=== PATIENT | male | born 1985 | race Caucasian/White ===

== ENCOUNTER 2024-02-21 15:41 | Inpatient (IN) | payer BC, SELFPAY ==
[2024-02-21] VITALS (10 sets, daily range): BP systolic 120–156; BP diastolic 82–95; PULSE 60–118; RESP 17–28; TEMP 36.9; O2SAT 95–98; BMI 56.9
--- NOTE | 2024-02-21 15:43 | PC.NURSE ---
Direct admit from [facility] in [facility] received pt via [facility]. Pt has Amiodarone drip running at 1 mg started around 1pm in their facility. 150 mg bolus of amio was given as well per report. Pt denies any chest pain,pressure,sob. Afib w/rvr in 110s-120s. call light provided to pt.
--- OUTSIDE RECORDS SUMMARY | 2024-02-21 15:46 | XMS_ITS | Data Portability ---
Author Name Unknown Address [place] [address] [place] [address] Phone [phone] Organization [facility] Address [address] [place] [phone] Assessment No assessment recorded. Plan of Treatment Reminders Order Date Submit Date Provider Last Modified By Organization Details Last Modified Time Details Appointments None recorded. Lab drug screen, urine 2022 023 [facility], [address] [place] [address], [address], 3 11:48:43 drug screen, urine 2022 023 [facility], [address] [place] [address], [address], 3 15:36:21 CBC w/ diff [email or web address] [facility], [address] [place], [address], 3 15:14:55 TSH, serum or plasma 2022 023 [facility], [address] [place], [address], 3 19:29:01 CMP, serum or plasma 2022 023 [facility], [address], [place], [address], 3 19:29:02 lipid panel, serum 2022 023 [facility], [address], [place], [address], 3 19:29:02 HbA1c (hemoglobin A1c), blood 2022 023 [facility], [address], [place], [address], 3 19:29:01 lipid panel, serum 2023 024 [facility], [address], [place], [address], 4 17:40:46 CBC w/ diff 2023 024 [facility], [address], [place], [address], 4 17:40:42 CMP, serum or plasma 2023 024 [facility], [address], [place], [address], 4 17:40:44 TSH, serum or plasma 2023 024 [facility], [address], [place], [address], 4 17:40:43 HbA1c (hemoglobin A1c), blood [email or web address] [facility], [address], [place], [address], 12:45:53 Referral None recorded. Procedures None recorded. Surgeries None recorded. Imaging None recorded. Medication Orders Adipex-P 37.5 mg tablet 2021 022 [email or web address] 5 [facility], [address] [place] [address], [address], 4 11:45:22 Adipex-P 37.5 mg tablet 2021 022 [email or web address] 5 [facility], [address] [place] [address], [address], 4 11:45:22 Adipex-P 37.5 mg tablet 2022 [email or web address] [place] [address] Pharmacy [facility], [address] [place] [address], [address], 4 11:45:22 losartan 50 mg tablet 2022 023 [email or web address] 5 [facility], [address] [place] [address], [address], 4 11:45:15 Effexor XR 75 mg capsule,ext ended release 2022 [email or web address] [place] [address] Pharmacy 87, [address] [place] [address], [address], 4 11:45:29 phentermine 37.5 mg tablet 2022 023 [email or web address] 5 [facility], [address] [place] [address], [address], 4 11:45:22 Wegovy 0.5 mg/0.5 mL subcutaneou s pen injector 2023 024 [email or web address] [facility], [address] [place] [address], [address], 4 12:45:53 Wegovy 0.25 mg/0.5 mL subcutaneou s pen injector [address] [facility], [address] [address], [place], [address], 4 12:45:53 losartan 50 mg tablet [address] [facility], [address] [facility] [address], [place], [address], 4 12:45:53 sertraline 50 mg tablet [address] [facility], [address], [address], 12:45:53 Patient TargetsNo targets recorded. Patient Instructions Encounter Date Encounter Id Patient Instructions Last Modified By Organization Details Last Modified Time 12/04/2021 [id number] heart-healthy diet: care instructions [email or web address] Not available 12/04/2021 11:25:46 walking for exercise: care instructions [email or web address] Not available 12/04/2021 11:25:46 01/08/2022 [id number] heart-healthy diet: care instructions Not available 01/08/2022 12:43:20 walking for exercise: care instructions [email or web address] Not available 01/08/2022 12:43:20 05/31/2022 [id number] heart-healthy diet: care instructions Not available 05/31/2022 12:27:34 walking for exercise: care instructions Not available 05/31/2022 12:27:34 Reason for Referral None Reported. Results Created Date Observation Date Name Description Value Unit Range Abnormal Flag Note LastModifiedBy Organization Detail LastModifiedTime 11/06/19 22 11/05/2021 CBC WBC 9.4 x10(3 )/uL 2.6 - 8.[address] [facility] [address] [place], [address], 11/05/2021 18:17:42 11/06/19 22 11/05/2021 CBC RBC 5.65 x10(6 )/uL 3.60 - 5.[address] [facility] [address] [place], [address], 11/05/2021 18:17:42 11/06/19 22 11/05/2021 CBC HGB 14.5 g/dL 11.3 - 15.[address] [facility] [address] [place], [address], 11/05/2021 18:17:42 11/06/19 22 11/05/2021 CBC HCT 43.4 % 32.6 - 47.[address] [facility] [address] [place], [address], 11/05/2021 18:17:42 11/06/19 22 11/05/2021 CBC MCV 76.8 fL 80.3 - 103.[address] [facility] [address] [place], [address], 11/05/2021 18:17:42 11/06/19 22 11/05/2021 CBC MCH 25.7 pg 26.0 - 34.[address] [facility] [address] [place], [address], 11/05/2021 18:17:42 11/06/19 22 11/05/2021 CBC MCHC 33.4 g/dL 31.8 - 36.[address] [facility] [address] [place], [address], 11/05/2021 18:17:42 11/06/19 22 11/05/2021 CBC platelet count 320 % 134 - [address] [facility] [address] [place], [address], 11/05/2021 18:17:42 11/06/19 22 11/05/2021 CBC neut% 74.4 % 38.3 - 69.[address] [facility] [address] [place], [address], 11/05/2021 18:17:42 11/06/19 22 11/05/2021 CBC lymph% 20.4 % 17.5 - 47.[address] [facility] [address] [place], [address], 11/05/2021 18:17:42 11/06/19 22 11/05/2021 CBC mxd% 5.2 % 1.9 - 24.[address] [facility] [address] [place], [address], 11/05/2021 18:17:42 11/06/19 22 11/05/2021 CBC neut# 7.0 x10(3 )/uL 1.2 - 5.[address] [facility] [address] [place], [address], 11/05/2021 18:17:42 11/06/19 22 11/05/2021 CBC lymph# 1.9 x10(3 )/uL 0.8 - 2.[address] [facility] [address], [place], [place], [address], 11/05/2021 18:17:42 11/06/19 22 11/05/2021 CBC mxd# 0.5 x10(3 )/uL 0.1 - 1.5 Not Available [facility] [address] [place], [place], [address], 11/05/2021 18:17:42 11/06/19 22 11/05/2021 CBC RDW-SD 40.5 fL 33.4 - 49.[address] [facility] [address] [place], [address], 11/05/2021 18:17:42 11/06/19 22 11/05/2021 CBC RDW-CV 13.8 % 10.8 - 14.[address] [facility] [address] [place], [address], 11/05/2021 18:17:42 11/06/19 22 11/05/2021 CBC MPV 9.3 fL 8.1 - 12.[address] [facility] [address] [place], [address], 11/05/2021 18:17:42 11/06/19 22 11/05/2021 COMPR EHENS LAURE METAB OLIC PANEL (CMP) sodium 143.2 mmol/ L 137.0 - 145.[address] [facility] [address] [place], [address], 11/05/2021 18:17:42 11/06/19 22 11/05/2021 COMPR EHENS LAURE METAB OLIC PANEL (CMP) potassium 4.01 mmol/ L 3.50 - 5.[address] [facility] [address] [place], [address], 11/05/2021 18:17:42 11/06/19 22 11/05/2021 COMPR EHENS LAURE METAB OLIC PANEL (CMP) chloride 106 mmol/ L 98 - [address] [facility] [address] [place], [address], 11/05/2021 18:17:42 11/06/19 22 11/05/2021 COMPR EHENS LAURE METAB OLIC PANEL (CMP) eco2 27 mmol/ L 22 - [address] [facility] [address] [place], [address], 11/05/2021 18:17:42 11/06/19 22 11/05/2021 COMPR EHENS LAURE METAB OLIC PANEL (CMP) BUN/urea 16 mg/dL 9 - [address] [facility] [address] [place], [address], 11/05/2021 18:17:42 11/06/19 22 11/05/2021 COMPR EHENS LAURE METAB OLIC PANEL (CMP) creatinine 0.92 mg/dL 0.66 - 1.[address] [facility] [address] [place], [address], 11/05/2021 18:17:42 11/06/19 22 11/05/2021 COMPR EHENS LAURE METAB OLIC PANEL (CMP) glucose 97 mg/dL 74 - [address] [facility] [address] [place], [address], 11/05/2021 18:17:42 11/06/19 22 11/05/2021 COMPR EHENS LAURE METAB OLIC PANEL (CMP) calcium 8.8 mg/dL 8.9 - 10.[address] [facility] [address] [place], [address], 11/05/2021 18:17:42 11/06/19 22 11/05/2021 COMPR EHENS LAURE METAB OLIC PANEL (CMP) albumin 3.9 g/dL 3.5 - 5.[address] [facility] [address] [place], [address], 11/05/2021 18:17:42 11/06/19 22 11/05/2021 COMPR EHENS LAURE METAB OLIC PANEL (CMP) AST 22 U/L 17 - [address] [facility] [address] [place], [address], 11/05/2021 18:17:42 11/06/19 22 11/05/2021 COMPR EHENS LAURE METAB OLIC PANEL (CMP) alkaline phos 118 U/L 38 - [address] [facility] [address] [place], [address], 11/05/2021 18:17:42 11/06/19 22 11/05/2021 COMPR EHENS LAURE METAB OLIC PANEL (CMP) total bilirubin <0.45 mg/dL 0.2 - 1.[address] [facility] [address] [place], [address], 11/05/2021 18:17:42 11/06/19 22 11/05/2021 COMPR EHENS LAURE METAB OLIC PANEL (CMP) total protein 6.8 g/dL 6.3 - 8.[address] [facility] [address] [place], [address], 11/05/2021 18:17:42 11/06/19 22 11/05/2021 COMPR EHENS LAURE METAB OLIC PANEL (CMP) eGFR 101 mL/mi n/1.7 3m2 >60 *eGFR Refer ence Value s Nettie l: >60 mL/mi n/1.7 3m2 Abnor mal: < 60 mL/mi n/1.7 3m2 *eGFR Refer ence Value s Nettie l: >60 mL/mi n/1.7 3m2 Abnor mal: < 60 mL/mi n/1.[address] [facility] [address] [place], [address], 11/05/2021 18:17:42 11/06/19 22 11/05/2021 COMPR EHENS LAURE METAB OLIC PANEL (CMP) A/G ratio 1.3 (calc ) 1.0 - 2.[address] [facility] [address] [place], [address], 11/05/2021 18:17:42 11/06/19 22 11/05/2021 COMPR EHENS LAURE METAB OLIC PANEL (CMP) globulin 2.9 g/dL_ (calc ) 1.9 - 3.[address] [facility] [address] [place], [address], 11/05/2021 18:17:42 11/06/19 22 11/05/2021 COMPR EHENS LAURE METAB OLIC PANEL (CMP) BUN/crea ratio 17 (calc ) 6 - [address] [facility] [address] [place], [address], 11/05/2021 18:17:42 11/06/19 22 11/05/2021 COMPR EHENS LAURE METAB OLIC PANEL (CMP) ALT 27 U/L 0 - [address] [facility] [address] [place], [address], 11/05/2021 18:17:42 11/06/19 22 11/05/2021 LIPID PANEL cholesterol 168 mg/dL 0 - [address] [facility] [address] [place], [address], 11/05/2021 18:17:43 11/06/19 22 11/05/2021 LIPID PANEL triglyceride s 162.3 mg/dL 0.0 - 199.[address] [facility] [address] [place], [address], 11/05/2021 18:17:43 11/06/19 22 11/05/2021 LIPID PANEL direct HDL 27 mg/dL 40 - [address] [facility] [address] [place], [address], 11/05/2021 18:17:43 11/06/19 22 11/05/2021 LIPID PANEL chol/DHDL ratio 6 %_(ca lc) 0 - [address] [facility] [address] [place], [address], 11/05/2021 18:17:43 11/06/19 22 11/05/2021 LIPID PANEL LDL (calculated) 108 mg/dL 0 - [address] [facility] [address] [place], [address], 11/05/2021 18:17:43 11/06/19 22 11/05/2021 LIPID PANEL VLDL (calculated) 32 mg/dL (calc ) 0 - [address] [facility] [address] [place], [address], 11/05/2021 18:17:43 11/06/19 22 11/05/2021 VITAM IN B12 vitamin B12 516 pg/mL 239 - [address] [facility] [address] [place], [address], 11/05/2021 18:17:43 11/06/19 22 11/05/2021 VITAM IN B12 folate 12.40 NG/mL 2.76 - 19.[address] [facility] [address] [place], [address], 11/05/2021 18:17:43 11/06/19 22 11/05/2021 TSH TSH 1.070 mIU/L 0.465 - 4.[address] [facility] [address] [place], [address], 11/05/2021 18:17:44 11/06/19 22 11/05/2021 VITAM IN D TOTAL vitamin D total 25.6 NG/mL 29.0 - 100.[address] [facility] [address] [place], [address], 11/05/2021 18:17:44 11/06/19 22 11/06/2021 TESTO STERO NE, TOTAL , MALES (ADUL T), IA testosterone , total, males (adult), ia 228 NG/dL 250-82 7 low In hypog onada l males , Testo stero ne, Total , LC/MS /MS, is the recom ofelia d assay due to the dimin ished accur acy of immun oassa y at level s below 250 ng/dL . This test code (1598 3) must be colle cted in a red-t op tube with no gel. Not Available [facility] [address] [place], [address], 11/06/2021 16:39:52 11/06/19 22 11/05/2021 drug scree n, urine THC negati ve Not Available [address], [address], 11/05/2021 10:04:18 11/06/19 22 11/05/2021 drug scree n, urine KASSI negati ve Not Available [address], [address], 11/05/2021 10:04:18 11/06/19 22 11/05/2021 drug scree n, urine OPI negati ve Not Available [address], [address], 11/05/2021 10:04:18 11/06/19 22 11/05/2021 drug scree n, urine MET negati ve Not Available [facility] [address] [place], [place] [address], [address], 11/05/2021 10:04:18 11/06/19 22 11/05/2021 drug scree n, urine AMP negati ve Not Available [facility] [address] [place], [place] [address], [address], 11/05/2021 10:04:18 11/06/19 22 11/05/2021 drug scree n, urine BZO negati ve Not Available [facility] [address] [place], [place] [address], [address], 11/05/2021 10:04:18 11/06/19 22 11/05/2021 drug scree n, urine BAR negati ve Not Available [facility] [address] [place] [address] [place], [address], 11/05/2021 10:04:18 11/06/19 22 11/05/2021 drug scree n, urine MTD negati ve Not Available [facility] [address] [place] [address] [place], [address], 11/05/2021 10:04:18 11/06/19 22 11/05/2021 drug scree n, urine BUPG negati ve Not Available [facility] [address] [place] [address] [place], [address], 11/05/2021 10:04:18 11/06/19 22 11/05/2021 drug scree n, urine TCA negati ve Not Available [facility] [address] [place] [address] [place], [address], 11/05/2021 10:04:18 11/06/19 22 11/05/2021 drug scree n, urine MDMA negati ve Not Available [facility] [address] [place], [place] [address], [address], 11/05/2021 10:04:18 11/06/19 22 11/05/2021 drug scree n, urine OXY negati ve Not Available [address] [place], [address], 11/05/2021 10:04:18 11/06/19 22 11/05/2021 drug scree n, urine PCP negati ve Not Available [address] [place], [address], 11/05/2021 10:04:18 11/06/19 22 11/05/2021 drug scree n, urine PPX negati ve Not Available [address] [place], [address], 11/05/2021 10:04:18 06/01/19 23 05/31/2022 drug scree n, urine THC negati ve Not Available [address] [place], [address], 05/31/2022 11:16:35 06/01/19 23 05/31/2022 drug scree n, urine KASSI negati ve Not Available [facility] [address] [place], [place] [address], [address], 05/31/2022 11:16:35 06/01/19 23 05/31/2022 drug scree n, urine OPI negati ve Not Available [facility] [address] [place], [place] [address], [address], 05/31/2022 11:16:35 06/01/19 23 05/31/2022 drug scree n, urine MET negati ve Not Available [facility] [address] [facility] [place], [address], 05/31/2022 11:16:35 06/01/19 23 05/31/2022 drug scree n, urine AMP negati ve Not Available [facility] [address] [place], [place] [address], [address], 05/31/2022 11:16:35 06/01/19 23 05/31/2022 drug scree n, urine BZO negati ve Not Available [facility] [address] [place], [place] [address], [address], 05/31/2022 11:16:35 06/01/19 23 05/31/2022 drug scree n, urine BAR negati ve Not Available [facility] [address] [place], [place] [address], [address], 05/31/2022 11:16:35 06/01/19 23 05/31/2022 drug scree n, urine MTD negati ve Not Available [facility] [address] [place], [place] [address], [address], 05/31/2022 11:16:35 06/01/19 23 05/31/2022 drug scree n, urine BUPG negati ve Not Available [facility] [address] [place], [place] [address], [address], 05/31/2022 11:16:35 06/01/19 23 05/31/2022 drug scree n, urine TCA negati ve Not Available [facility] [address] [place], [place] [address], [address], 05/31/2022 11:16:35 06/01/19 23 05/31/2022 drug scree n, urine MDMA negati ve Not Available [address] [place], [address], 05/31/2022 11:16:35 06/01/19 23 05/31/2022 drug scree n, urine OXY negati ve Not Available [address] [place], [address], 05/31/2022 11:16:35 06/01/19 23 05/31/2022 drug scree n, urine PCP negati ve Not Available [address] [place], [address], 05/31/2022 11:16:35 06/01/19 23 05/31/2022 drug scree n, urine PPX negati ve Not Available [address] [place], [address], 05/31/2022 11:16:35 07/09/19 23 07/08/2022 drug scree n, urine THC negati ve Not Available [address] [place], [address], 07/08/2022 15:28:56 07/09/19 23 07/08/2022 drug scree n, urine KASSI negati ve Not Available [address] [place], [address], 07/08/2022 15:28:56 07/09/19 23 07/08/2022 drug scree n, urine OPI negati ve Not Available [address] [place], [address], 07/08/2022 15:28:56 07/09/19 23 07/08/2022 drug scree n, urine MET negati ve Not Available [facility] [address] [place], [place] [address], [address], 07/08/2022 15:28:56 07/09/19 23 07/08/2022 drug scree n, urine AMP negati ve Not Available [facility] [address] [place], [place] [address], [address], 07/08/2022 15:28:56 07/09/19 23 07/08/2022 drug scree n, urine BZO negati ve Not Available [facility] [address] [place], [place] [address], [address], 07/08/2022 15:28:56 07/09/19 23 07/08/2022 drug scree n, urine BAR negati ve Not Available [address] [place], [address], 07/08/2022 15:28:56 07/09/19 23 07/08/2022 drug scree n, urine MTD negati ve Not Available [address] [place], [address], 07/08/2022 15:28:56 07/09/19 23 07/08/2022 drug scree n, urine BUPG negati ve Not Available [facility] [address] [place], [place] [address], [address], 07/08/2022 15:28:56 07/09/19 23 07/08/2022 drug scree n, urine TCA negati ve Not Available [facility] [address] [place], [place] [address], [address], 07/08/2022 15:28:56 07/09/19 23 07/08/2022 drug scree n, urine MDMA negati ve Not Available [address] [place] [address] [place], [address], 07/08/2022 15:28:56 07/09/19 23 07/08/2022 drug scree n, urine OXY negati ve Not Available [facility] [address] [place] [address], [address], 07/08/2022 15:28:56 07/09/19 23 07/08/2022 drug scree n, urine PCP negati ve Not Available [address], [address], 07/08/2022 15:28:56 07/09/19 23 07/08/2022 drug scree n, urine PPX negati ve Not Available [address], [address], 07/08/2022 15:28:56 07/10/19 23 07/09/2022 HGBA1 C HGBA1C 5.5 % 4.0 - 6.0 non-d iabet ic range : 4-6% ADA Targe t:<7% Above Targe t: 8-12% non-d iabet ic range : 4-6% ADA Targe t:<7% Above Targe t: 8-12% Not Available [facility] [address] [place], [address], 07/09/2022 19:29:01 07/10/19 23 07/09/2022 TSH TSH 1.430 mIU/L 0.465 - 4.[address] [facility] [address] [place], [address], 07/09/2022 19:29:01 07/10/19 23 07/09/2022 COMPR EHENS LAURE METAB OLIC PANEL (CMP) albumin 4.1 g/dL 3.5 - 5.[address] [facility] [address] [place], [address], 07/09/2022 19:29:02 07/10/19 23 07/09/2022 COMPR EHENS LAURE METAB OLIC PANEL (CMP) chloride 102 mmol/ L 98 - [address] [facility] [address] [place], [address], 07/09/2022 19:29:02 07/10/19 23 07/09/2022 COMPR EHENS LAURE METAB OLIC PANEL (CMP) creatinine 1.07 mg/dL 0.66 - 1.[address] [facility] [address] [place], [address], 07/09/2022 19:29:02 07/10/19 23 07/09/2022 COMPR EHENS LAURE METAB OLIC PANEL (CMP) eco2 26 mmol/ L 22 - [address] [facility] [address] [place], [address], 07/09/2022 19:29:02 07/10/19 23 07/09/2022 COMPR EHENS LAURE METAB OLIC PANEL (CMP) glucose 104 mg/dL 74 - [address] [facility] [address] [place], [address], 07/09/2022 19:29:02 07/10/19 23 07/09/2022 COMPR EHENS LAURE METAB OLIC PANEL (CMP) potassium 3.80 mmol/ L 3.50 - 5.[address] [facility] [address] [place], [address], 07/09/2022 19:29:02 07/10/19 23 07/09/2022 COMPR EHENS LAURE METAB OLIC PANEL (CMP) alkaline phos 116 U/L 38 - [address] [facility] [address] [place], [address], 07/09/2022 19:29:02 07/10/19 23 07/09/2022 COMPR EHENS LAURE METAB OLIC PANEL (CMP) sodium 140.0 mmol/ L 137.0 - 145.[address] [facility] [address] [place], [address], 07/09/2022 19:29:02 07/10/19 23 07/09/2022 COMPR EHENS LAURE METAB OLIC PANEL (CMP) total bilirubin <0.45 mg/dL 0.2 - 1.[address] [facility] [address] [place], [address], 07/09/2022 19:29:02 07/10/19 23 07/09/2022 COMPR EHENS LAURE METAB OLIC PANEL (CMP) total protein 6.8 g/dL 6.3 - 8.[address] [facility] [address] [place], [address], 07/09/2022 19:29:02 07/10/19 23 07/09/2022 COMPR EHENS LAURE METAB OLIC PANEL (CMP) ALT 35 U/L 0 - [address] [facility] [address] [place], [address], 07/09/2022 19:29:02 07/10/19 23 07/09/2022 COMPR EHENS LAURE METAB OLIC PANEL (CMP) BUN/urea 17 mg/dL 9 - [address] [facility] [address] [place], [address], 07/09/2022 19:29:02 07/10/19 23 07/09/2022 COMPR EHENS LAURE METAB OLIC PANEL (CMP) eGFR 84 mL/mi n/1.7 3m2 >60 *eGFR Refer ence Value s Nettie l: >60 mL/mi n/1.7 3m2 Abnor mal: < 60 mL/mi n/1.7 3m2 *eGFR Refer ence Value s Nettie l: >60 mL/mi n/1.7 3m2 Abnor mal: < 60 mL/mi n/1.[address] [facility] [address], [place], [place], [address], 07/09/2022 19:29:02 07/10/19 23 07/09/2022 COMPR EHENS LAURE METAB OLIC PANEL (CMP) A/G ratio 1.5 (calc ) 1.0 - 2.[address] [facility] [address], [place], [address], 07/09/2022 19:29:02 07/10/19 23 07/09/2022 COMPR EHENS LAURE METAB OLIC PANEL (CMP) globulin 2.7 g/dL_ (calc ) 1.9 - 3.[address] [facility] [address] [place], [place], [address], 07/09/2022 19:29:02 07/10/19 23 07/09/2022 COMPR EHENS LAURE METAB OLIC PANEL (CMP) calcium 9.0 mg/dL 8.9 - 10.[address] [facility] [address], [place], [place], [address], 07/09/2022 19:29:02 07/10/19 23 07/09/2022 COMPR EHENS LAURE METAB OLIC PANEL (CMP) AST 26 U/L 17 - [address] [facility] [address], [place], [place], [address], 07/09/2022 19:29:02 07/10/19 23 07/09/2022 LIPID PANEL VLDL (calculated) 75 mg/dL (calc ) 0 - [address] [facility] [facility] [address] [place], [address], 07/09/2022 19:29:02 07/10/19 23 07/09/2022 LIPID PANEL direct HDL 29 mg/dL 40 - [address] [facility] [address] [place], [address], 07/09/2022 19:29:02 07/10/19 23 07/09/2022 LIPID PANEL triglyceride s 377.0 mg/dL 0.0 - 199.[address] [facility] [address] [place], [address], 07/09/2022 19:29:02 07/10/19 23 07/09/2022 LIPID PANEL cholesterol 178 mg/dL 0 - [address] [facility] [address] [place], [address], 07/09/2022 19:29:02 07/10/19 23 07/09/2022 LIPID PANEL chol/DHDL ratio 6 %_(ca lc) 0 - [address] [facility] [address] [place], [address], 07/09/2022 19:29:02 07/10/19 23 07/09/2022 LIPID PANEL LDL (calculated) 73 mg/dL 0 - [address] [facility] [address] [place], [address], 07/09/2022 19:29:02 07/10/19 23 07/10/2022 CBC (INCL UDES DIFF/ PLT) absolute basophils 41 cells /uL 0-[address] [facility] [address] [place], [address], 07/10/2022 11:08:54 07/10/19 23 07/10/2022 CBC (INCL UDES DIFF/ PLT) absolute eosinophils 204 cells /uL 15-[address] [facility] [address] [place], [address], 07/10/2022 11:08:54 07/10/19 23 07/10/2022 CBC (INCL UDES DIFF/ PLT) absolute lymphocytes 2632 cells /uL 850-[address] [facility] [address] [place], [address], 07/10/2022 11:08:54 07/10/19 23 07/10/2022 CBC (INCL UDES DIFF/ PLT) absolute monocytes 377 cells /uL 200-95 [address] [facility] [address] [place], [address], 07/10/2022 11:08:54 07/10/19 23 07/10/2022 CBC (INCL UDES DIFF/ PLT) absolute neutrophils 6946 cells /uL 1500-[address] [facility] [address] [place], [address], 07/10/2022 11:08:54 07/10/19 23 07/10/2022 CBC (INCL UDES DIFF/ PLT) basophils 0.4 % normal Not Available [facility] [address] [place], [address], 07/10/2022 11:08:54 07/10/19 23 07/10/2022 CBC (INCL UDES DIFF/ PLT) comment(s) See Notes The above test was perfo rmed; howev er, evalu ate resul ts with cauti on. We are unabl e to comme nt on white blood cells and cellu lar morph ology due to degen erati on. Not Available [facility] [address] [place], [address], 07/10/2022 11:08:54 07/10/19 23 07/10/2022 CBC (INCL UDES DIFF/ PLT) eosinophils 2.0 % normal Not Available [facility] [address] [place], [address], 07/10/2022 11:08:54 07/10/19 23 07/10/2022 CBC (INCL UDES DIFF/ PLT) hematocrit 47.7 % 38.5-5 0[address] [facility] [address] [place], [address], 07/10/2022 11:08:54 07/10/19 23 07/10/2022 CBC (INCL UDES DIFF/ PLT) hemoglobin 15.5 g/dL 13.2-1 7.[address] [facility] [address] [place], [address], 07/10/2022 11:08:54 07/10/19 23 07/10/2022 CBC (INCL UDES DIFF/ PLT) lymphocytes 25.8 % normal Not Available [facility] [address] [place], [address], 07/10/2022 11:08:54 07/10/19 23 07/10/2022 CBC (INCL UDES DIFF/ PLT) MCH 26.7 pg 27.0-3 [address] [facility] [address] [place], [address], 07/10/2022 11:08:54 07/10/19 23 07/10/2022 CBC (INCL UDES DIFF/ PLT) MCHC 32.5 g/dL 32.0-3 [address] [facility] [address] [place], [address], 07/10/2022 11:08:54 07/10/19 23 07/10/2022 CBC (INCL UDES DIFF/ PLT) MCV 82.1 fL 80.0-1 [address] [facility] [address] [place], [address], 07/10/2022 11:08:54 07/10/19 23 07/10/2022 CBC (INCL UDES DIFF/ PLT) monocytes 3.7 % normal Not Available [facility] [address] [place], [address], 07/10/2022 11:08:54 07/10/19 23 07/10/2022 CBC (INCL UDES DIFF/ PLT) MPV 10.1 fL 7.5-12 .[address] [facility] [address] [place], [address], 07/10/2022 11:08:54 07/10/19 23 07/10/2022 CBC (INCL UDES DIFF/ PLT) neutrophils 68.1 % normal Not Available [facility] [address] [place], [address], 07/10/2022 11:08:54 07/10/19 23 07/10/2022 CBC (INCL UDES DIFF/ PLT) platelet count 306 thous and/u L 140-40 [address] [facility] [address] [place], [address], 07/10/2022 11:08:54 07/10/19 23 07/10/2022 CBC (INCL UDES DIFF/ PLT) RDW 15.1 % 11.0-1 5[address] [facility] [address] [place], [address], 07/10/2022 11:08:54 07/10/19 23 07/10/2022 CBC (INCL UDES DIFF/ PLT) red blood cell count 5.81 rosalino on/uL 4.20-5 [address] [facility] [address] [place], [address], 07/10/2022 11:08:54 07/10/19 23 07/10/2022 CBC (INCL UDES DIFF/ PLT) white blood cell count 10.2 thous and/u L 3.8-10 .[address] [facility] [address] [place], [address], 07/10/2022 11:08:54 02/16/20 24 02/17/2024 HEMOG LOBIN A1C hemoglobin A1C 5.4 % <5.7 The follo wing HbA1c range s recom ofelia d by the [employer] i[employer] n (ADA) may be used as an aid in the diagn osis of diabe lewis melli tus. HbA1c Sugge sted Diagn osis >=6.5 % Diabe tic 5.7% - 6.4% Pre-D iabet ic <5.7% Non-D iabet ic Not Available [facility] [address] [place], [address], 02/17/2024 07:14:32 02/16/20 24 02/17/2024 [id number] estimated average glucose (EAG) 108 mg/dL Estim ated [place] [facility] Gluco se (eAG) is calcu lated using the equat ion eAG = (28.7 x HbA1c ) - 46.7 based on the guide lines estab lishe d by the ADA. If the patie nt has certa in disea ses inclu ding kidne y disea se, sickl e cell anemi a, thala ssemi a, or is takin g medic ation s such as dapso ne, eryth ropoi etin, or iron, eAG shoul d not be evalu ated. Not Available [facility] [address] [place], [address], 02/17/2024 07:14:33 11/10/19 22 11/07/2021 home sleep study No observ ation record ed. [email or web address] [address], [address], 11/12/2021 16:36:53 Result Notes None recorded. Problems Name Problem SNOMED Code Status Onset Date Resolution Date Notes Provider Name and Address Organization Details Recorded Time Mixed anxiety and depressive disorder 559658046 Active 2019 [facility] 0 11:38:53 Nicotine dependence 59027278 Active 2019 had to be changed to code F66358 for vapping [facility] 0 11:41:46 Essential hypertension 27424343 Active 2022 Iasbel Gómez NP [address], [address] [place] [address] 3 15:04:18 Problem Notes None recorded. Procedures Surgical History Date Name Laterality Status Provider Name and Address Organization Details Recorded Time 05/19/19 22 venipuncture completed Roxana Dallas [facility] 05/18/2021 11:57:25 03/05/19 20 venipuncture completed [facility] 03/05/2019 12:26:22 extraction of wisdom tooth completed [facility] 07/22/2019 14:31:33 Imaging Results Imaging Date Name Status LastModified by Organiz ation Details LastModified Time 11/07/2021 home sleep study completed [email or web address] [address], [address], 11/12/2021 16:36:53 Procedure Notes None recorded. Medical Equipment None Reported. Allergies Allergen ID Allergen Name Allergen Category Reaction Reaction Severity Criticality Documentation Date Start Date Code Code System Note Provider Name and Address Organization Details Recorded Time [id number] Medicinal product containin g penicilli n and acting as antibacte rial agent (product) medicatio n hives Not available Not available 03/05/2019 77236 05 SNOMED Not Available Not Available Not Available [id number] lisinopri l medicatio n cough Not available Not available 07/02/2021 51587 RxNorm Not Available Not Available Not Available Medications Name Sig Start Date Stop Date Status Note LastModified by Organization Details LastModified Time losartan 50 mg tablet Take 1 tablet every day by oral route. 2023 active Not Available Not Available Not Avai lable venlafaxi ne ER 75 mg capsule,e xtended release 24 hr Take 1 capsule every day by oral route. 02/15 completed Not Available Not Available Not Available Celexa 10 mg tablet Take 1 tablet every day by oral route for 90 days. 04/13 completed increase d to 20mg Not Available Not Available Not Available clindamyc in HCl 300 mg capsule Take 1 capsule every 6 hours by oral route for 10 days. 02/06 completed Not Available Not Available Not Available citalopra m 40 mg tablet TAKE 1 TABLET BY MOUTH ONCE DAILY FOR 90 DAYS 05/18 completed Not Available Not Available Not Available valacyclo vir 1 gram tablet TAKE 1 TABLET BY MOUTH EVERY 12 HOURS FOR 10 DAYS 02/15 completed Not Available Not Available Not Available hydrocodo ne 5 mg-acetam inophen 325 mg tablet 05/18 completed Not Available Not Available Not Available lisinopri l 20 mg tablet TAKE 1 TABLET BY MOUTH ONCE DAILY 07/12 completed Not Available Not Available Not Available clindamyc in HCl 150 mg capsule 01/03 completed Not Available Not Available Not Available phentermi ne 37.5 mg tablet TAKE 1 TABLET BY MOUTH ONCE DAILY 02/15 completed Not Available Not Available Not Available famotidin e 20 mg tablet Take 1 tablet every day by oral route. 05/31 completed Not Available Not Available Not Available Celexa 20 mg tablet Take 1 tablet every day by oral route for 90 days. 07/21 completed increase d dose Not Available Not Available Not Available gabapenti n 100 mg capsule TAKE 1 CAPSULE BY MOUTH THREE TIMES DAILY 07/08 completed Patient states I just take it once in a while Not Available Not Available Not Available fluoxetin e 20 mg capsule TAKE 1 CAPSULE BY MOUTH ONCE DAILY 05/31 completed Not Available Not Available Not Available sertralin e 50 mg tablet Take 1 tablet every day by oral route. 2023 active Not Available Not Available Not Avai lable Vitamin C 07/12 completed Not Available Not Available Not Available Aleve PRN 07/12 completed Not Available Not Available Not Available biotin 07/12 completed Not Available Not Available Not Available Vitamin D3 07/12 completed Not Available Not Available Not Available Pain Relieving (benzocai ne) 20 % topical ointment Apply 1 applicat ion every 4-6 hours by topical route as needed. 07/08 completed Not Available Not Available Not Available One Daily Mens 50 Plus(gink go) 1 tablet per day 05/18 completed Not Available Not Available Not Available Mens Multivita min High Potency 07/12 completed Not Available Not Available Not Available Wegovy 0.25 mg/0.5 mL subcutane ous pen injector Inject 0.25 mg every week by subcutan eous route. 2023 active Not Available Not Available Not Avai lable Wegovy 0.5 mg/0.5 mL subcutane ous pen injector Inject 0.5 mg every week by subcutan eous route. 2023 active Not Available Not Available Not Avai lable Mounjaro 5 mg/0.5 mL subcutane ous pen injector Inject by subcutan eous route for 30 days. 05/31 completed Not Available Not Available Not Available Mounjaro 2.5 mg/0.5 mL subcutane ous pen injector INJECT 2.5 MG SUB-Q ONCE WEEKLY FOR 4 WEEKS, THEN INCREASE TO 5 MG SUB-Q WEEKLY 11/05 completed Not Available Not Available Not Available Vitals Date Recorded Body height Body mass index (BMI) Body weight Provider Name and Address Organization Details Last Updated DateTime 01/08/2022 187.96 cm 48.1 kg/m2 129404.14 g Cris Malone [facility] 01/08/2022 12:24:09 Date Recorded Body height Body mass index (BMI) Body weight Body temperature Heart rate Oxygen saturation Oxygen saturation in Arterial blood by Pulse oximetry Respiratory rate Systolic blood pressure Diastolic blood pressure Systolic blood pressure Diastolic blood pressure Provider Name and Address Organization Details Last Updated DateTime 3 187.96 cm 53.1 kg/m2 973764. 09 g 98.8 [degF] 99 /min 97 % 97 % 18 /min 158 mm[Hg] 92 mm[Hg] 156 mm[Hg] 96 mm[Hg] Cris [facility] 3 10:40:12 Date Recorded Body height Body mass index (BMI) Body weight Body temperature Heart rate Oxygen saturation Oxygen saturation in Arterial blood by Pulse oximetry Respiratory rate Systolic blood pressure Diastolic blood pressure Provider Name and Address Organization Details Last Updated DateTime 3 187.96 cm 52.2 kg/m2 802849. 6 g 96.5 [degF] 107 /min 99 % 99 % 18 /min 164 mm[Hg] 90 mm[Hg] [facility] 3 14:54:16 Date Recorded Body height Body mass index (BMI) Body weight Body temperature Heart rate Oxygen saturation Oxygen saturation in Arterial blood by Pulse oximetry Respiratory rate Systolic blood pressure Diastolic blood pressure Provider Name and Address Organization Details Last Updated DateTime 4 187.96 cm 55 kg/m2 173827. 93 g 98.7 [degF] 85 /min 97 % 97 % 18 /min 140 mm[Hg] 96 mm[Hg] [facility] 4 11:48:15 Date Recorded Body height Body mass index (BMI) Body weight Provider Name and Address Organization Details Last Updated DateTime 12/04/2021 187.96 cm 49.3 kg/m2 205562.47 g Edith Elizabeth [facility] 12/04/2021 10:54:08 Social History Question Answer Notes LastModified by Organizat ion Details LastModified Time Tobacco Smoking Status Former Smoker Roxana Holder [facility] 05/18/2021 10:13:17 Do You Have An Advance Directive? No Information not available 03/05/2019 What Is Your Level Of Alcohol Consumption? Occasional Information not available 03/05/2019 Do You Wear A Helmet When Biking? Yes Information not available 05/18/2021 Are You Blind Or Do You Have Difficulty Seeing? Yes Suppose To Wear Glasses Information not available 05/18/2021 Is Blood Transfusion Acceptable In An Emergency? Yes Information not available 05/18/2021 What Is Your Level Of Caffeine Consumption? Moderate Information not available 03/05/2019 How Much Tobacco Do You Chew? 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 No Information not available 07/22/2019 In The 14 Days Before Symptom Onset, Have You Had Close Contact With A Person Who Is Under Investigation For COVID-19 While That Person Was Ill? No Information not available 07/22/2019 Have You Been To An Area Known To Be High Risk For COVID-19? No Information not available 07/22/2019 Are You Currently Employed? Yes Information not available 05/18/2021 Are You Deaf Or Do You Have Serious Difficulty Hearing? No Information not available 05/18/2021 What Type Of Diet Are You Following? REGULAR Information not available 03/05/2019 Which Illicit Or Recreational Drugs Have You Used? None Information not available 03/05/2019 Have You Processed Blood Or Body Fluids From An Ebola Virus Disease Patient Without Appropriate PPE? No Information not available 05/18/2021 Do You Or Have You Ever Used E-cigarettes Or Vape? Current User Of Electronic Cigarettes Information not available 03/05/2019 Education 10 Less Than Hs Information not available 05/18/2021 What Is The Highest Grade Or Level Of School You Have Completed Or The Highest Degree You Have Received? 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 1 Information not available 05/18/2021 On Those Days That You Engage In Moderate To Strenuous Exercise, How Many Minutes, On Average, Do You Exercise? 1 Information not available 05/18/2021 Are There Any Guns Present In Your Home? Yes Information not available 03/05/2019 Hard Of Hearing Or Deaf In One Or Both Ears? No Information not available 03/05/2019 High Number Of Sexual Partners No Information not available 03/05/2019 History Of Inconsistent/no Condom Use No Information not available 03/05/2019 How Many Years Have You Used Illicit Or Recreational Drugs? 0 Information not available 07/22/2019 International Travel No Information not available 03/05/2019 Legally Blind In One Or Both Eyes? No Information not available 03/05/2019 In The Past 6 Months Have You Fallen No Information not available 03/05/2019 Have You Ever Been Tested For Hepatitis C No Information not available 05/18/2021 Have You Had A Blood Transfusion Before 1991? No Information not available 05/18/2021 Have You Had Account Development Associate Dialysis? No Information not available 05/18/2021 Have You Ever Used Injectable Drugs, Even Once? No Information not available 05/18/2021 Do You Have Tattoos Or Body Piercings? Yes Information not available 05/18/2021 Have You Had Close Contact With An Individual With Hepatitis C? No Information not available 05/18/2021 Have You Ever Had Sex For Drugs Or Money? No Information not available 05/18/2021 Have You Ever Had Unprotected Sex? Yes Information not available 05/18/2021 Have You Been Incarcerated For Longer Than 6 Months? No Information not available 05/18/2021 Have You Tested Positive For HIV? No Information not available 05/18/2021 Do You Have A History Of Fist Fighting Or Combat Experience? No Information not available 05/18/2021 Medication List Reconciled Yes Information not available 03/05/2019 Most Recent Dental Visit 08/11/2019 Information not available 05/18/2021 Sexual Orientation Straight Or Heterosexual Information not available 03/05/2019 Gender Identity Male Informati on not available 03/05/2019 Eye Exam 12/25/2018 Information no t available 03/05/2019 Do You Feel Safe Yes Informat ion not available 03/05/2019 Marital Status Single Informatio n not available 03/05/2019 What Was The Date Of Your Most Recent Tobacco Screening? 02/16/2024 [email or web address] Information not available 02/16/2024 Mother With HIV? No Informat ion not available 03/05/2019 How Many Children Do You Have? 1 Information not available 05/18/2021 Do You Use Protection During Sex? No Information not available 05/18/2021 What Is Your Relationship Status? Information not available 05/18/2021 Do You Use Your Seat Belt Or Car Seat Routinely? Yes Information not available 05/18/2021 Seat Belts Used Routinely Yes Information not available 03/05/2019 Are You Sexually Active? Yes Information not available 03/05/2019 Sexual Partner Has HIV? No Information not available 03/05/2019 Sexual Partner Uses IV Drugs? No Information not available 03/05/2019 Smoke Alarm In Home Yes Information not available 03/05/2019 At What Age Did You Start Smoking Tobacco? 3 [email or web address] Information not available 12/04/2021 Do You Or Have You Ever Used Smokeless Tobacco? Former Smokeless Tobacco User Information not available 03/05/2019 What Types Of Sporting Activities Do You Participate In? None Information not available 05/18/2021 General Stress Level Medium Information not available 05/18/2021 Do You Feel Stressed (tense, Restless, Nervous, Or Anxious, Or Unable To Sleep At Night)? [id number] Information not available 05/18/2021 Do You Use Any Illicit Or Recreational Drugs? No Information not available 05/18/2021 Do You Use Sunscreen Routinely? No Information not available 03/05/2019 Have You Used IV Drugs? No Information not available 03/05/2019 Do You Or Have You Ever Used Any Other Forms Of Tobacco Or Nicotine? Yes Information not available 05/18/2021 Sex: Male Functional Status Question Answer Note LastModified by Organizat ion Details LastModified Time Do you have difficulty walking or climbing stairs? No Information not available 05/18/2021 Do you have transportation difficulties? No Information not available 05/18/2021 Are you able to walk? YESWOREST Information not available 03/05/2019 Do you have difficulty doing errands alone? No Information not available 05/18/2021 Are you able to care for yourself? Yes Information n ot available 05/18/2021 Do you have difficulty dressing or bathing? No Information not available 05/18/2021 What is your exercise level? Occasional Information not available 03/05/2019 Mental Status Question Answer Note LastModified by Organization D etails LastModified Time Do you have difficulty concentrating, remembering or making decisions? Yes Information no t available 05/18/2021 Family History Nothing Reported. Medical History Condition Response Anxiety Disorder Y Obesity Y Vision or Eye Problems Y GERD/Reflux Y Back Problems Y Headaches Y Chicken Pox Y Depression Y Immunizations Vaccine Type Date Status Note Provider Nam e and Address Organization Details Recorded Time DTP 8 completed Roxana [facility] 11/05/2021 13:10:32 [facility] 13:10:32 Hep B, unspecified formulation 0 completed [facility] 11/05/2021 13:10:32 COVID-19, mRNA, LNP-S, PF, 100 mcg/0.5mL dose or 50 mcg/0.25mL dose 1 completed Roxana Glory null, [facility] 11/05/2021 13:10:32 Td (adult), 2 Lf tetanus toxoid, preservative free, adsorbed 3 completed Roxana Dallas null, [facility] 11/05/2021 13:10:32 Tdap 0 completed Roxana Glory null, [facility] 11/05/2021 13:10:32 polio, unspecified formulation 0 completed Roxana Dallas null, [facility] 11/05/2021 13:10:32 MMR 0 completed Roxana Dallas null, [facility] 11/05/2021 13:10:32 polio, unspecified formulation 9 completed Roxana Glory null, [facility] 11/05/2021 13:10:32 polio, unspecified formulation 8 completed Roxana Glory null, [facility] 11/05/2021 13:10:32 COVID-19, mRNA, LNP-S, PF, 100 mcg/0.5mL dose or 50 mcg/0.25mL dose 1 completed Roxana Dallas null, [facility] 11/05/2021 13:10:32 MMR 3 completed Roxana Dallas null, [facility] 11/05/2021 13:10:32 Hep B, unspecified formulation 9 completed Roxana Dallas null, [facility] 11/05/2021 13:10:32 DTP 9 completed Roxana Dallas null, [facility] 11/05/2021 13:10:32 DTP 0 completed Roxana Glory null, [facility] 11/05/2021 13:10:32 DTP 3 completed Roxana Glory null, [facility] 11/05/2021 13:10:32 polio, unspecified formulation 3 completed Roxaan Dallas null, [facility] 11/05/2021 13:10:32 DTP 9 completed Roxana Glory null, [facility] 11/05/2021 13:10:32 Hep B, unspecified formulation 9 completed Roxana Dallas null, [facility] 11/05/2021 13:10:32 Past Encounters Encounter ID Performer Location Encounter Start Date Encounter Closed Date Diagnosis/Indication Diagnosis SNOMED-CT Code Diagnosis ICD10 Code [id number] Susie [address] [address] 03/05/2019 10:34:48 03/05/2019 14:46:57 Mixed anxiety and depressive disorder 990200717 F41.8 Diet education 05234117 Z71.3 Exercises education, guidance, and counseling 234453651 Z71.82 Finding of body mass index 487428422 Z68.42 Nicotine dependence 5629 4008 F17.290 Depression screening 171 184737 Z13.31 Active or passive immunization 966515211 Z23 Diabetes m ellitus screening 796407080 Z13.1 [id number] Susie [address] [address] 07/22/2019 14:06:12 07/22/2019 16:36:59 Nicotine dependence 59353961 F17.290 Mixed anxi ety and depressive disorder 911376486 F41.[id number] [address] 05/19/2020 14:49:29 05/19/2020 15:51:57 Mixed anxiety and depressive disorder 140758726 F41.8 Nicotine dependence 5629 4008 F17.290 Finding of body mass index 052458095 Z68.42 Diet education 18645265 Z71.3 Exercises education, guidance, and counseling 093533960 Z71.82 [id number] Aaron Lawson [facility] [address] [place] [address] 05/18/2021 09:46:09 05/18/2021 10:35:59 Long-term drug therapy 584000061 Z79.899 Hyperlipidemia 45585167 E78.5 Fatigue 92582110 R53.83 HIV screening 805896948 Z11.4 Generalize d anxiety disorder 76720762 F41.1 Diet education 63288227 Z71.3 Exercises education, guidance, and counseling 027259232 Z71.82 Finding of body mass index 161863753 Z68.43 Tobacco us e cessation education 391819798 Z71.6 [id number] Aaron Lawson [facility] [address] [place] [address] 06/15/2021 14:48:38 06/15/2021 16:49:02 Diet education 02656450 Z71.3 Exercises education, guidance, and counseling 203781461 Z71.82 Finding of body mass index 328913523 Z68.43 Essential hypertension 30810215 I10 Obstructiv e sleep apnea syndrome 91428732 G47.33 [id number] Tayla Gardner MD [facility] [address] [place] [address] 07/12/2021 10:38:36 07/12/2021 10:57:44 Finding of body mass index 443129251 Z68.43 Generalize d anxiety disorder 08489322 F41.1 Diet education 81234709 Z71.3 Exercises education, guidance, and counseling 727553890 Z71.82 [id number] Tayla Gardner MD [facility] [address] [place] [address] 08/16/2021 11:03:27 08/16/2021 12:05:51 Body mass index 40+ - severely obese 426878839 Z68.43 Pain in coccyx 86872875 M53.3 [id number] [facility] [address] [place] [address] 11/05/2021 09:35:16 11/05/2021 10:36:03 Body mass index 40+ - severely obese 043911272 Z68.43 Diet education 19594492 Z71.3 Exercises education, guidance, and counseling 706353382 Z71.89 Hyperlipidemia 20829186 E78.5 Long-term drug therapy 510060964 Z79.899 Fatigue 06122516 R53.83 Gastroesop hageal reflux disease without esophagitis 157290423 K21.9 Generalize d anxiety disorder 74310748 F41.[id number] [address] 12/04/2021 10:26:31 12/04/2021 11:10:31 Body mass index 40+ - severely obese 836442793 Z68.43 Diet education 01583351 Z71.3 Exercises education, guidance, and counseling 108342924 Z71.[id number] [address] 01/08/2022 12:22:23 01/08/2022 13:43:12 Body mass index 40+ - severely obese 377321508 Z68.43 Diet education 72352875 Z71.3 Exercises education, guidance, and counseling 340518347 Z71.89 [id number] ABILIO ELLISON DO [facility] [address] [place] [address] 05/31/2022 10:06:48 05/31/2022 11:35:57 Body mass index 40+ - severely obese 349162841 Z68.43 Diet education 62545344 Z71.3 Exercises education, guidance, and counseling 061055002 Z71.89 Mixed anxi ety and depressive disorder 781400923 F41.8 Essential hypertension 14966136 I10 Obstructiv e sleep apnea syndrome 78852079 G47.33 [id number] Isabel Gómez NP [facility] [address] [place] [address] 07/08/2022 14:34:36 07/08/2022 17:16:14 Body mass index 40+ - severely obese 641056998 Z68.43 Mixed anxi ety and depressive disorder 390793388 F41.8 Essential hypertension 83526980 I10 [id number] Isabel Gómez NP [facility] [address] [place] [address] 02/16/2024 11:07:27 02/16/2024 12:13:04 Essential hypertension 77307407 I10 Mixed hyperlipidemia 267 387811 E78.2 Diabetes m ellitus screening 931076987 Z13.1 Depressive disorder 3548 9007 F32.A Adult heal th examination 584783603 Z00.00 Body mass index 40+ - severely obese 355703499 Z68.43 Viral uppe r respiratory tract infection 111929151 J06.9 Health Concerns Section Related Observation LastModified by Organization Detai ls LastModified Time None Recorded Concern Status LastModified by Organization Details LastModified Time None Recorded Advance Directives Directive N: Payers Encounter Date Sequence Insurance Name Policy Number Policy Casas Covered Member ID Casas Member ID Guarantor Name 12/04/2021 1 [place] [id number] 1 Krishna Skinny [place] [id number] Krishna D [place] 01/08/2022 1 [place] [id number] 1 Krishna D [place] [id number] Krishna D [place] 05/31/2022 1 [place] [id number] 1 Krishna D [place] [id number] Krishna D [place] 07/08/2022 1 [place] [id number] 1 Krishna D [place] [id number] Krishna D [place] 02/16/2024 1 [place] [id number] 1 Krishna D [place] [id number] 46 Krishna D [place] Notes Date Note Type Note Provider Name and Address Organization Details Recorded Time 12/04/2021 text/html Patient presents as a telephone visit for follow up on weight loss. Patient is at work and provider is at [place]. Patient seen in real time with audio.I have verified this is the correct patient and have obtained verbal consent from the patient/ surrogate to perform this voluntary telemedicine encounter evaluation. I have explained risks (including potential loss of confidentiality), benefits, alternatives, and the potential need for subsequent face to face care. 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 He is currently taking Adipex and has lost 13 lbs since previous visit. He reports his appetite has decreased and he has more energy. He denies any adverse side effects. He would like to continue the medication at this time. He has no complaints today. Aaron Lawson, DO [address], [address], [facility] 12/04/2021 13:07:04 01/08/2022 text/html Patient presents as a telephone visit for follow up on weight loss. Patient is at work and provider is at [facility]. Patient seen in real time with audio.I have verified this is the correct patient and have obtained verbal consent from the patient/ surrogate to perform this voluntary telemedicine encounter evaluation. I have explained risks (including potential loss of confidentiality), benefits, alternatives, and the potential need for subsequent face to face care. 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 He is currently taking Adipex and has lost 9 lbs since his last visit. He states he is starting to feel better with he weight loss. He reports he is tolerating the medication well. Denies chest pain. Denies irregular heart beat. No concerns today. Krishna Lawson, DO [address], [address], [facility] 01/08/2022 14:17:47 05/31/2022 text/html Patient is here to discuss weight loss. He was previously on adipex in the past. and lost over 70 lbs previously on the medication. He states once he came off the medication his weight has started creeping up. Also would like to restart anxiety medication. He was previously on fluoxetine but wasn't working well for him. Also tried celexa and didn't work well for him. His blood pressure is elevated today. He states he has been without his medication for awhile. He was previously on losartan and it was working well. He now has a sleep apnea machine and states it is working well for him. He gets his machine from [facility]. ABILIO ELLISON, [address], [address], [facility] 05/31/2022 17:01:40 07/08/2022 text/html Patient presents today for follow-up on adipex. He has lost 7lbs this month.He also started effexor for depression/anxiety and has had improvement.He has been monitoring blood pressure at home and has been running 130s/80s Isabel Gómez NP [address], [address], [facility] 07/09/2022 11:09:35 02/16/2024 text/html Patient is here for annual wellness visit and labs.His blood pressure is elevated and he was previously on losartan 50 mg and it worked well.Also complains of depression and anxiety. He as on prozac and celexa in past but would like to try a different medication because those don't work well. His is on sertraline and said it worked for her and wondering if it would work for him.He is battling a sinus infection and currently taking a z-pack.Also would like to discuss weight loss. His current BMI 55. He has been on adipex in the past. It works well for a couple months and then weight comes back when he stops it. He would like to try an injectable if covered by insurance. Isabel Gómez NP [address], [address], [facility] 02/16/2024 12:52:35
--- OUTSIDE RECORDS SUMMARY | 2024-02-21 15:46 | XMS_ITS | Continuity of Care Document ---
Author Name Unknown Address [facility] [address] [place] [address] Phone [phone] Organization [facility], [facility] Address [address] [place] [address] Assessment No assessment recorded. Plan of Treatment Reminders Order Date Submit Date Provider Last Modified By Organization Details Last Modified Time Details Appointments None recorded. Lab lipid panel, serum 2023 [facility], [address] [place], [address], 17:40:46 CBC w/ diff 2023 024 [facility], [address], [place], [address], 17:40:42 CMP, serum or plasma 2023 024 [facility], [address], [place], [place], [address], 17:40:44 TSH, serum or plasma 2023 024 [facility], [address], [place], [address], 17:40:43 HbA1c (hemoglobin A1c), blood [address] [facility], [address], [place], [address], 12:45:53 Referral None recorded. Procedures None recorded. Surgeries None recorded. Imaging None recorded. Medication Orders Wegovy 0.5 mg/0.5 mL subcutaneou s pen injector [address] [facility], [address] [place] [address], [address], 4 12:45:53 Wegovy 0.25 mg/0.5 mL subcutaneou s pen injector [address] [facility], [address] [place] [address], [address], 4 12:45:53 losartan 50 mg tablet [address] [place] [address] Pharmacy [address], [address] [place] [address], [address], 4 12:45:53 sertraline 50 mg tablet [address] [facility], [address] [place] [address], [address], 4 12:45:53 Patient TargetsNo targets recorded. Patient InstructionsNo instructions recorded. Reason for Referral None Reported. Problems Name Problem SNOMED Code Status Onset Date Resolution Date Notes Provider Name and Address Organization Details Recorded Time Mixed anxiety and depressive disorder 856800194 Active 2019 [facility] 0 11:38:53 Nicotine dependence 02108865 Active 2019 had to be changed to code E02376 for vapping [facility] 0 11:41:46 Essential hypertension 01508548 Active 2022 Isabel Gómez NP [address], [address], [place] [facility] 3 15:04:18 Problem Notes None recorded. Procedures Surgical History Date Name Laterality Status Provider Name and Address Organization Details Recorded Time 05/19/19 22 [facility] 05/18/2021 11:57:25 03/05/19 20 venipuncture completed [facility] 03/05/2019 12:26:22 extraction of wisdom tooth completed [facility] 07/22/2019 14:31:33 Imaging Results None recorded. Procedure Notes None recorded. Medical Equipment None Reported. Allergies Allergen ID Allergen Name Allergen Category Reaction Reaction Severity Criticality Documentation Date Start Date Code Code System Note Provider Name and Address Organization Details Recorded Time [id number] Medicinal product containin g penicilli n and acting as antibacte rial agent (product) medicatio n hives Not available Not available 03/05/2019 32271 05 SNOMED Not Available Not Available Not Available [id number] lisinopri l medicatio n cough Not available Not available 07/02/2021 41993 RxNorm Not Available Not Available Not Available [...] Updated DateTime 4 187.96 cm 55 kg/m2 538046. 93 g 98.7 [degF] 85 /min 97 % 97 % 18 /min 140 mm[Hg] 96 mm[Hg] Kathryn Ashbyrett [facility] 4 11:48:15 Social History Question Answer Notes LastModified by Organizat ion Details LastModified Time Tobacco Smoking Status Former Smoker Roxana Schley [facility] 05/18/2021 10:13:17 Do You Have An Advance [...] Or The Highest Degree You Have Received? 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 No Information not available 05/18/2021 Have [...] Of Your Most Recent Tobacco Screening? 02/16/2024 [email or web address] Information not available 02/16/2024 Mother With HIV? [...] Anxious, Or Unable To Sleep At Night)? [id number] Information not available 05/18/2021 Do You Use [...] History Nothing Reported. Medical History Condition Response Depression Y Anxiety Disorder Y Obesity Y Vision or Eye Problems Y Headaches Y Back Problems Y GERD/Reflux Y Chicken Pox Y Immunizations Vaccine Type Date Status Note Provider Nam e and Address Organization Details Recorded Time DTP 8 completed Roxana Schley [facility] 11/05/2021 13:10:32 Hib (PRP-T) 0 completed Roxana Schley [facility] 11/05/2021 13:10:32 Hep B, unspecified formulation 0 [facility]2021 13:10:32 COVID-19, mRNA, LNP-S, PF, 100 mcg/0.5mL dose or 50 mcg/0.25mL dose 1 completed Roxana Schley [facility] 11/05/2021 13:10:32 Td (adult), 2 Lf tetanus toxoid, preservative free, adsorbed 3 completed Roxana Glory [facility] 11/05/2021 13:10:32 Tdap 0 completed Roxana Glory [facility] 11/05/2021 13:10:32 polio, unspecified formulation 0 completed Roxana Schley [facility] 11/05/2021 13:10:32 MMR 0 completed Roxana Schley [facility] 11/05/2021 13:10:32 polio, unspecified formulation 9 completed Roxana Schley null, [facility] 11/05/2021 13:10:32 polio, unspecified formulation 8 completed Roxana Schley null, [facility] 11/05/2021 13:10:32 COVID-19, mRNA, LNP-S, PF, 100 mcg/0.5mL dose or 50 mcg/0.25mL dose 1 completed Roxana Schley null, [facility] 11/05/2021 13:10:32 MMR 3 completed Roxana Schley null, [facility] 11/05/2021 13:10:32 Hep B, unspecified formulation 9 completed Roxana Schley null, [facility] 11/05/2021 13:10:32 DTP 9 completed Roxana Schley null, [facility] 11/05/2021 13:10:32 DTP 0 completed Roxana Schley null, [facility] 11/05/2021 13:10:32 DTP 3 completed Roxana Schley null, [facility] 11/05/2021 13:10:32 polio, unspecified formulation 3 completed Roxana Schley null, [facility] 11/05/2021 13:10:32 DTP 9 completed Roxana Schley null, [facility] 11/05/2021 13:10:32 Hep B, unspecified formulation 9 completed Roxana Glory null, [facility] 11/05/2021 13:10:32 Past Encounters Encounter ID Performer Location Encounter Start Date Encounter Closed Date Diagnosis/Indication Diagnosis SNOMED-CT Code Diagnosis ICD10 Code [id number] Isabel Gómez NP [facility] [address] [place] [address] 02/16/2024 11:07:27 02/16/2024 12:13:04 Essential hypertension 25615504 I10 Mixed hyperlipidemia 267 694242 E78.2 Diabetes m ellitus screening 148526420 Z13.1 Depressive disorder 3548 9007 F32.A Adult heal th examination 972734703 Z00.00 Body mass index 40+ - severely obese 708108389 Z68.43 Viral uppe r respiratory tract infection 298652190 J06.9 Health Concerns Section Related Observation LastModified by Organization Detai ls LastModified Time None Recorded Concern Status LastModified by Organization Details LastModified Time None Recorded Payers Encounter Date Sequence Insurance Name Policy Number Policy Casas Covered Member ID Casas Member ID Guarantor Name 02/16/2024 1 [place] [id number] 1 Krishna Holder [id number] Krishna Holder Notes Date Note Type Note Provider Name and Address Organization Details Recorded Time 02/16/2024 text/html Patient is here for annual [...] covered by insurance. Isabel Gómez NP [address] [facility], [place], [address], [facility] 02/16/2024 12:52:35
--- NOTE | 2024-02-21 15:50 | PM.HP ---
Providers/Chief Complaint Admitting Physician: Silvano Nixon MD Primary Care Provider: SARAI Garcia Chief Complaint: afib History of Present Illness Krishna Holder is a 38 year old male with past medical history of morbid obesity, hypertension, depression, obstructive sleep apnea not compliant with CPAP was transferred from outside hospital where he had presented with concerns for chest pressures, diaphoresis, palpitations and was found to have atrial fibrillation with RVR. Patient states he has been having these palpitations on and off at night for few months. Usually the episodes of palpitations would subside in few hours by itself but today they did not and were associated with diaphoresis and chest pressure so he went to the ER. In the ER over there he was given 20 mg of IV Cardizem push and started on Cardizem drip. Even on Cardizem drip of 7.5 his heart rate was still running at 140s. Transfer to [facility] was sought with concerns for need of manager department. We requested patient to be transitioned over to amiodarone drip after bolus. Patient was also given 1 mg/kg body weight dose of Lovenox. Examination patient is lying comfortably in bed with family at bedside on amiodarone drip of 1, heart rate of 118 bpm with blood pressure of 120 over 90 mmHg, saturating well on room air. Denies any active chest pain or difficulty in breathing currently. Gives history of vaping. Giurgius significant family history of CAD in father and grandfather with father having an VT at the age of 25. Review of Systems General: Reports: 10 or more systems reviewed and unremarkable except in HPI and below Const: Denies: fever(s), chills, body aches, change in appetite, change in weight, malaise, night sweats, diaphoresis, change in sleep pattern, daytime sleepiness or snoring Eyes: Denies: change in vision, blurry vision, photophobia, eye discomfort or eye discharge ENMT: Denies: throat pain, enlarged tonsils, hoarseness, mouth pain, oral sores, dry mouth, tinnitus, nasal congestion or post nasal drip Card: Denies: chest pain, palpitations, irregular heart rhythm, edema, swelling of feet/ankles, lightheadedness, syncope, pre-syncope, dyspnea on exertion, orthopnea, leg pain with exertion or acrocyanosis Resp: Denies: dyspnea, productive cough, non-productive cough, wheezing, stridor, pain on inspiration, change in phlegm color, hemoptysis or chest congestion GI: Denies: abdominal pain, nausea, vomiting, hematemesis, coffee ground emesis, dysphagia, heartburn, diarrhea, constipation, bloating, GI cramping, change in bowel habits, pain on defecation, hematochezia or melena : Denies: flank pain, difficulty urinating, dysuria, urinary frequency, urinary urgency, urinary hesitancy, urinary dribbling, difficulty starting urination, change in urine stream, nocturia or hematuria Musc: Denies: neck pain, back pain, extremity pain, joint pain, joint swelling, joint redness, joint stiffness or limited range of motion Neuro: Denies: headache(s), numbness in extremities, weakness in extremities, sensory changes, lack of coordination, difficulty walking, frequent falls, dizziness, vertigo, confusion, Slurred speech present, difficulty communicating thoughts or seizure-like activity Psych: Denies: anxiety, depression, mood swings, panic attacks, hopelessness or irritability Endo: Denies: polyuria, polydipsia, tired all the time, cold intolerance, excessive sweating, flushing or heat intolerance Ryne/Lymph: Denies: easy bruising or easy bleeding All/Imm: Denies: tongue swelling, facial swelling or acute wheezing Medications/Allergies Home Medications Medication Instructions Recorded Confirmed Last Taken Type losartan 50 mg tablet 50 mg PO DAILY 02/21/24 02/21/24 02/21/24 History sertraline 50 mg tablet 50 mg PO DAILY 02/21/24 02/21/24 02/21/24 15:52 History Allergies Allergy/AdvReac Type Severity Reaction Status Date / Time Penicillins Allergy ALGY-Anaphy Verified 02/21/24 15:52 laxis PFSH Acute PFSH: Medical History (Updated 02/21/24 @ 16:26 by Silvano Nixon MD) Obstructive sleep apnea Depression HTN (hypertension) Morbid obesity Family History (Updated 02/21/24 @ 16:27 by Silvano Nixon MD) Grandfather Diabetes paternal Lung cancer maternal Father CAD (coronary artery disease) VT at the age of 25 Social History Smoking and tobacco/nicotine status: never used tobacco/nicotine Alcohol intake: never Substance/Drug Use: never Adopted: No Caregiver/support person: No Lives independently: No Household members: spouse Marital status: service: No Current occupational status: employed Sexually active: Yes Do you think of yourself as: Straight/Heterosexual Current gender identity: Male Physical Exam Narrative: General: No acute distress, AO x3, morbidly obese HEENT: PERRLA, pupils bilaterally equal and reactive Chest: Normal vesicular breath sounds, no added sounds, equal good air entry bilaterally CVS: S1-S2 irregularly irregular, tachycardia, no murmur, no gallops, no rubs Abdomen: Soft, nontender, no organomegaly, bowel sounds present Neuro: No focal deficits, no facial deformity, AO x3, power 5/5 in all limbs A&P Assessment and plan (1) Atrial fibrillation with RVR: Continue with amiodarone drip for now. Will likely transition over to 200 mg twice daily for completion of 24 hours of loading dose. Target heart rate below 100. Echocardiogram once heart rate below 100. Given possible CAD for now we will also start on metoprolol 25 mg twice daily. Currently Pepito vas score of 1 for history of hypertension. For now we will start on full dose anticoagulation with Lovenox 1 mg/kg body weight every 12 hourly. Discussed in detail with the patient for need for anticoagulation for stroke prevention. Discussed merits versus demerits. Patient is agreeable to start anticoagulation for now. Will discontinue if echocardiogram also shows no concerns for low EF or CAD. At that point can transition over to full dose aspirin 325 mg daily. (2) Chest pressure: No past history of CAD. Patient does have risk factors with morbid obesity, sleep apnea, vaping, hypertension, significant family history of early CAD. Complaining of chest pressure with A-fib today. Cycle troponin Echocardiogram as above. Aspirin 81 mg daily. Metoprolol as above. Check A1c, lipid panel. Patient would benefit from Lexiscan stress test once heart rate controlled. (3) Morbid obesity: (4) Obstructive sleep apnea: Agreeable to use CPAP. (5) HTN (hypertension): Goal blood pressure less than 140/90 mmHg. Hold off on home dose of losartan for now. Plan Full code Cardiac diet Full dose Lovenox will be sufficient for DVT prophylaxis Protonix for PUD prophylaxis Attestations Medical Necessity Statement*: Admission for more than 2 midnights for management of atrial fibrillation with rapid ventricular response, chest pressure under evaluation in a patient with history of hypertension, smoking, significant family history of CAD. Diagnoses Atrial fibrillation with RVR I48.91 Chest pressure R07.89 Morbid obesity E66.01 Obstructive sleep apnea G47.33 HTN (hypertension) I10
--- NOTE | 2024-02-21 15:51 | XRR_ITS ---
PROCEDURE INFORMATION: Exam: XR Chest Exam date and time: 02/21/2024 5:11 PM Age: 38 years old Clinical indication: Other: Hypoxia TECHNIQUE: Imaging protocol: Radiologic exam of the chest. Views: 1 view. COMPARISON: No relevant prior studies available. FINDINGS: Lungs: No focal consolidation. Pleural spaces: No evidence of pneumothorax. No evidence of pleural effusion. Heart/Mediastinum: Cardiomediastinal silhouette is within normal limits. Bones/joints: No evidence of acute osseous abnormality. XR/XR chest 1V portable [id number] IMPRESSION: 1. No acute cardiopulmonary abnormality.
--- NOTE | 2024-02-21 15:59 | ECG_ITS ---
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 Measurements Intervals [place] Rate: 118 P: 0 MA: 0 QRS: 136 QRSD: 113 T: 14 QT: 365 QTc: 512 Interpretive Statements ATRIAL FIBRILLATION WITH RAPID VENTRICULAR RESPONSE PATTERN CONSISTENT WITH PULMONARY DISEASE POSSIBLE RIGHT VENTRICULAR HYPERTROPHY [SOME/ALL OF: PROMINENT R IN V1, LATE TRANSITION, RAD, KODI, SSS] No previous ECG available for comparison Electronically Signed On 02-22-2024 20:06:59 HOPPER ATTENDANT by Angelito Gates M.D. [id number]
[2024-02-21 16:30] LABS: Basophils % 0.3 %; Eosinophils # 0.2 10^3/uL (0.0-0.8); Eosinophils % 1.6 %; Hematocrit 45.5 % (37-53); Lymphocytes # 2.8 10^3/uL (0.8-4.8); Lymphocytes % 25.3 %; Mean Corpuscular HGB Conc 34.1 g/dL (30-55); Mean Corpuscular Hemoglobin 26.3 pg (27-33); Mean Corpuscular Volume 77.1 fl (82-101); Mean Platelet Volume 9.5 fL (7.4-10.4); Monocytes # 0.6 10^3/uL (0.2-0.9); Monocytes % 5.3 %; Neutrophils # 7.43 10^3/uL (1.8-7.7); Neutrophils % 66.9 %; Nucleated Red Blood Cells % 0 %; Platelet Count 341 10^3/cmm (157-399); Red Cell Distribution Width 14.4 % (12.1-15.1); White Blood Count 11.11 10^3/uL (3.29-11.43)
[2024-02-21 16:45] LABS: D Dimer 0.38 ug/mLFEU (0-0.59)
[2024-02-21 16:48] LABS: Troponin(5th) Baseline 29 ng/L (0-15)
[2024-02-21 17:06] LABS: Procalcitonin 0.08 ng/mL (0-0.5); Thyroid Stimulating Hormone 1.13 uIU/mL (0.27-4.20); Vitamin B12 503 pg/mL (232-1245)
[2024-02-21 17:17] LABS: Alanine Aminotransferase 40 U/L (0-41); Alkaline Phosphatase 100 U/L (40-130); Anion Gap 15.8 (5-19); Aspartate Amino Transferase 22 U/L (0-40); Blood Urea Nitrogen 11 mg/dL (6-20); Calcium 8.7 mg/dL (8.5-10.5); Carbon Dioxide 22 mmol/L (22-29); Chloride 106 mmol/L (98-107); Creatinine Clr Calc Pharmacy 253.3143; Globulin 2.6 g/dL (1.3-4.6); Glomerular Filtration Rate 127.6 mL/min (90-130); Glucose 113 mg/dL (65-115); Iron 51 ug/dL (59-158); Osmolality Calculated 290 mOsm/kg (285-295); Percent Saturation 16.5 % (20-50); Potassium 3.8 mmol/L (3.5-5.1); Sodium 140 mmol/L (136-145); Total Bilirubin 0.3 mg/dL (0.15-1.2); Total Iron Binding Capacity 308 mcg/dl; Total Protein 6.6 g/dL (6.6-8.7); Unsaturated Iron Binding 257 ug/dL (112-347)
--- NOTE | 2024-02-21 18:20 | ECG_ITS ---
[facility] Test Date: 2024-02-21 Pat Name: Krishna Holder Department: Room: 112 Gender: Male Navigation Officer: : 1985 Requested By: Silvano Nixon Order Number: [id number] Fannie MD: Angelito Gates M.D. Measurements Intervals [place] Rate: 100 P: 0 VA: 0 QRS: 111 QRSD: 114 T: 12 QT: 389 QTc: 503 Interpretive Statements ATRIAL FIBRILLATION WITH RAPID VENTRICULAR RESPONSE PATTERN CONSISTENT WITH PULMONARY DISEASE POSSIBLE RIGHT VENTRICULAR HYPERTROPHY [SOME/ALL OF: PROMINENT R IN V1, LATE TRANSITION, RAD, KODI, SSS] POSSIBLE INFERIOR MYOCARDIAL INFARCTION , PROBABLY OLD [30 ms Q WAVE IN II/aVF] Compared to ECG 02/21/2024 15:59:51 Myocardial infarct finding now present Electronically Signed On 02-22-2024 20:15:39 FITNESS STUDIES TEACHER by Angelito Gates M.D. [id number]
[2024-02-21] MEDS: pantoprazole 40 mg SDV IVP (18:28)
[2024-02-21] MEDS: FUROsemide 10 mg/mL SDV 4mL 40 MG IVP (18:28)
[2024-02-21 18:45] LABS: Troponin 5 2HR 29.91 ng/L (0-15); Troponin 5 2HR Delta 0.91 ABS# (0-10)
[2024-02-21 19:42] LABS: Bacteria Urine None Seen /hpf; Hyaline Casts Urine 0.81 /lpf; RBC Urine 0-2 /hpf (0-2); Squamous Epithelial Cell Urine 0-5 /hpf (0-5); WBC Urine 0-5 /hpf (0-5)
[2024-02-21 19:45] LABS: Amphetamines Screen Urine Negative (Negative); Barbiturates Screen Urine Negative (Negative); Benzodiazepines Screen Urine Negative (Negative); Cocaine Screen Urine Negative (Negative); Opiate Screen Urine Negative (Negative); PCP Screen Urine Negative (Negative); THC Screen Urine Negative (Negative)
[2024-02-21 19:54] LABS: Add Urine Microscopic? YES; Bilirubin Urine Negative (Negative); Blood Urine Negative (Negative); Glucose Urine UA Negative (Normal); Ketones Urine Negative (Negative); Leukocyte Esterase Urine Negative (Negative); Nitrate Urine Negative (Negative); Protein Urine Negative (Negative); Specific Gravity, Urine 1.014 (1.005-1.030); Urine Appearance Clear (CLEAR); Urine Color Yellow (Yellow); pH Urine 5.5 (5-7)
--- NOTE | 2024-02-21 20:08 | PC.NURSE ---
1830pm converted to Sinus rhythm HR-70s to 80s. Notified Dr Bain on pt's conversion from Afib to SR. Verified if we need to continue the Amio drip per protocol down to 0.5mg. per dr bain to continue the drip per protocol.
[2024-02-21] MEDS: metoprolol tartrate 25 mg Tablet PO (20:23)
[2024-02-21] MEDS: enoxaparin 150 mg/mL Syringe SUBCUT (22:03)
[2024-02-21 22:35] LABS: Troponin 5 6HR 30.65 ng/L (0-15); Troponin 5 6HR Delta 1.65 ng/L (0-12)
--- NOTE | 2024-02-21 23:29 | ECG_ITS ---
[facility] Date: 2024-02-21 Pat Name: Krishna Holder Department: Room: 112 Gender: Male Audio Visual Coordinator: : 1985 Requested By: Silvano Nixon Order Number: [id number] Fannie MD: Angelito Gates M.D. Measurements Intervals [place] Rate: 62 P: 46 TN: 201 QRS: 107 QRSD: 112 T: 72 QT: 491 QTc: 500 Interpretive Statements SINUS RHYTHM WITH OCCASIONAL SUPRAVENTRICULAR PREMATURE COMPLEXES POSSIBLE LEFT ATRIAL ENLARGEMENT [-0.1mV P-WAVE IN V1/V2] POSSIBLE RIGHT VENTRICULAR HYPERTROPHY [SOME/ALL OF: PROMINENT R IN V1, LATE TRANSITION, RAD, KODI, SSS] PROLONGED QT INTERVAL Compared to ECG 02/21/2024 18:20:39 Prolonged QT interval now present Atrial fibrillation no longer present Myocardial infarct finding no longer present Electronically Signed On 02-22-2024 20:15:14 PLASTIC PARTS FABRICATOR by Angelito Gates M.D. [id number]
[2024-02-22] VITALS (9 sets, daily range): BP systolic 120–146; BP diastolic 63–91; PULSE 54–69; RESP 16–24; TEMP 36.8–37.1; O2SAT 93–97
[2024-02-22 05:45] LABS: Basophils % 0.3 %; Eosinophils # 0.2 10^3/uL (0.0-0.8); Eosinophils % 2.2 %; Hematocrit 44.9 % (37-53); Lymphocytes % 27.4 %; Mean Corpuscular HGB Conc 33.2 g/dL (30-55); Mean Corpuscular Volume 78.2 fl (82-101); Mean Platelet Volume 9.3 fL (7.4-10.4); Monocytes # 0.8 10^3/uL (0.2-0.9); Monocytes % 7.7 %; Neutrophils # 6.66 10^3/uL (1.8-7.7); Neutrophils % 61.8 %; Nucleated Red Blood Cells % 0 %; Platelet Count 305 10^3/cmm (157-399); Red Blood Count 5.74 10^6/uL (3.85-5.65); Red Cell Distribution Width 14.6 % (12.1-15.1); White Blood Count 10.79 10^3/uL (3.29-11.43)
[2024-02-22 06:02] LABS: Alanine Aminotransferase 37 U/L (0-41); Albumin Level 3.7 g/dL (3.5-5.2); Alkaline Phosphatase 91 U/L (40-130); Anion Gap 12.6 (5-19); Aspartate Amino Transferase 19 U/L (0-40); Blood Urea Nitrogen 12 mg/dL (6-20); Calcium 8.8 mg/dL (8.5-10.5); Carbon Dioxide 25 mmol/L (22-29); Chloride 104 mmol/L (98-107); Creatinine Clr Calc Pharmacy 197.0222; Globulin 3.1 g/dL (1.3-4.6); Glomerular Filtration Rate 95.5 mL/min (90-130); Glucose 105 mg/dL (65-115); Magnesium 2.2 mg/dL (1.7-2.3); Osmolality Calculated 286 mOsm/kg (285-295); Phosphorus 3.6 mg/dL (2.5-4.5); Potassium 3.6 mmol/L (3.5-5.1); Sodium 138 mmol/L (136-145); Total Bilirubin 0.3 mg/dL (0.15-1.2); Total Protein 6.8 g/dL (6.6-8.7)
[2024-02-22 06:03] LABS: Estmated Average Glucose 111; Hemoglobin A1C 5.5 % (4.0-6.0)
[2024-02-22 06:07] LABS: Procalcitonin 0.07 ng/mL (0-0.5)
[2024-02-22 06:18] LABS: Chol HDL Ratio 7.17 mg/dL (1.0-5.00); Cholesterol 165 mg/dL (0-200); HDL Cholesterol 23 mg/dL (60-100); LDL Cholesterol Calculated 110 mg/dL (50-129); LDL HDL Ratio 4.78 RATIO (0.00-3.22); Triglycerides 158 mg/dL (0-150)
[2024-02-22 06:22] LABS: Folate Level 6.4 ng/mL (4.5-32.2)
[2024-02-22] MEDS: sertraline 50 mg Tablet PO (09:24)
[2024-02-22] MEDS: aspirin 81 mg EC Tablet PO (09:24)
[2024-02-22] MEDS: metoprolol tartrate 25 mg Tablet PO (09:24)
[2024-02-22] MEDS: perflutren protein-a microsphr 0.22 mg/mL SDV 3 mL IV (09:33)
--- NOTE | 2024-02-22 11:08 | PM.DCS ---
Discharge Providers Date of Admission: 02/21/24 15:41 Date of Discharge: February 22, 2024 Attending Provider at Admission: Silvano Nixon MD Attending Provider at Discharge: Silvano Nixon MD Primary Care Provider: Isabel Gómez NP Diagnoses at Discharge Discharge Diagnosis (1) Atrial fibrillation with RVR: Status: Acute (2) Chest pressure: Status: Acute (3) Morbid obesity: Status: Acute (4) Obstructive sleep apnea: Status: Acute (5) HTN (hypertension): Status: Acute Reason for Visit Reason for Visit: afib Hospital Course Hospital Course Krishna Holder is a 38 year old male with past medical history of morbid obesity, hypertension, depression, obstructive sleep apnea not compliant with CPAP was transferred from outside hospital where he had presented with concerns for chest pressures, diaphoresis, palpitations and was found to have atrial fibrillation with RVR. Patient states he has been having these palpitations on and off at night for few months. Usually the episodes of palpitations would subside in few hours by itself but today they did not and were associated with diaphoresis and chest pressure so he went to the ER. In the ER over there he was given 20 mg of IV Cardizem push and started on Cardizem drip. Even on Cardizem drip of 7.5 his heart rate was still running at 140s. Transfer to [facility] was sought with concerns for need of temporary staff accountant. We requested patient to be transitioned over to amiodarone drip after bolus. Patient was also given 1 mg/kg body weight dose of Lovenox. Examination patient is lying comfortably in bed with family at bedside on amiodarone drip of 1, heart rate of 118 bpm with blood pressure of 120 over 90 mmHg, saturating well on room air. Denies any active chest pain or difficulty in breathing currently. Gives history of vaping. Giurgius significant family history of CAD in father and grandfather with father having an HI at the age of 25. Patient was admitted to the hospital further evaluation and management of A-fib with RVR. While being on amiodarone drip he converted back to normal sinus rhythm. During hospitalization his heart rate remained stable and in sinus rhythm both at rest and exertion. Amiodarone drip was discontinued after he retained a sinus rhythm was continued on metoprolol twice daily. Further possible ACS workup given his strong family history of CAD, morbid obesity, high blood pressures, history of vaping were discussed in detail with the patient and he wants to follow-up as an outpatient for Lexiscan stress test. Echocardiogram was done which showed a normal EF. Patient was counseled in detail to stop vaping and to use CPAP regularly given significant sleep apnea. He has been discharged in hemodynamically stable condition. Physical Exam Narrative: General: No acute distress, AO x3, morbidly obese HEENT: PERRLA, pupils bilaterally equal and reactive Chest: Normal vesicular breath sounds, no added sounds, equal good air entry bilaterally CVS: S1-S2 regular, no tachycardia, no murmur, no gallops, no rubs Abdomen: Soft, nontender, no organomegaly, bowel sounds present Neuro: No focal deficits, no facial deformity, AO x3, power 5/5 in all limbs Discharge Data Studies Completed and Pending Completed Studies During Hospitalization Category Date Time Status XR chest 1V portable [id number] Routine Exams 02/21/24 15:51 Completed CV. echo wo/w contrast [id number] Routine Ultrasound 02/22/24 15:46 Completed Pending at discharge Category Date Time Status Sestamibi Stress Test Request Routine Exams 02/22/24 10:24 Ordered Complete Blood Count w/Auto AM LABS Lab 02/23/24 04:00 Ordered Comprehensive Metabolic Panel AM LABS Lab 02/23/24 04:00 Ordered NM neida perf SPECT r/s* [id number] Routine Nuc Med 02/22/24 10:24 Ordered Radiology Impressions Chest X-Ray 02/21/24 15:51 IMPRESSION: 1. No acute cardiopulmonary abnormality. CONCLUSIONS Technically limited quality echocardiogram because of poor ultrasonic windows. LV systolic function is normal with EF of 55-60%. Mild mitral regurgitation. Mild mitral regurgitation. No comparison studies are available. Angelito Gates MD (Electronically Signed) Final Date: 22 February 2024 Laboratory Results WBC 10.79 10^3/uL (3.29-11.43) 02/22/24 05:23 RBC 5.74 10^6/uL (3.85-5.65) H 02/22/24 05:23 Hgb 14.90 g/dL (11.27-16.99) 02/22/24 05:23 Hct 44.9 % (37-53) 02/22/24 05:23 MCV 78.2 fl (82-101) L 02/22/24 05:23 MCH 26.0 pg (27-33) L 02/22/24 05:23 MCHC 33.2 g/dL (30-55) 02/22/24 05:23 RDW 14.6 % (12.1-15.1) 02/22/24 05:23 Plt Count 305 10^3/cmm (157-399) 02/22/24 05:23 MPV 9.3 fL (7.4-10.4) 02/22/24 05:23 Neut % (Auto) 61.8 % 02/22/24 05:23 Lymph % (Auto) 27.4 % 02/22/24 05:23 [place] % (Auto) 7.7 % 02/22/24 05:23 Eos % (Auto) 2.2 % 02/22/24 05:23 Baso % (Auto) 0.3 % 02/22/24 05:23 Neut # (Auto) 6.66 10^3/uL (1.8-7.7) 02/22/24 05:23 Lymph # (Auto) 3.0 10^3/uL (0.8-4.8) 02/22/24 05:23 Randolph # (Auto) 0.8 10^3/uL (0.2-0.9) 02/22/24 05:23 Eos # (Auto) 0.2 10^3/uL (0.0-0.8) 02/22/24 05:23 Baso # (Auto) 0.0 10^3/uL (0.0-0.1) 02/22/24 05:23 Nucleated RBC % (auto) 0 % 02/22/24 05:23 Nucleated RBCs # 0.0 /100WBC 02/22/24 05:23 D-Dimer 0.38 ug/mLFEU (0-0.59) 02/21/24 16:08 Sodium 138 mmol/L (136-145) 02/22/24 05:23 Potassium 3.6 mmol/L (3.5-5.1) 02/22/24 05:23 Chloride 104 mmol/L (98-107) 02/22/24 05:23 Carbon Dioxide 25 mmol/L (22-29) 02/22/24 05:23 Anion Gap 12.6 (5-19) 02/22/24 05:23 BUN 12 mg/dL (6-20) 02/22/24 05:23 Creatinine 0.9 mg/dL (0.7-1.2) 02/22/24 05:23 GFR Calculation 95.5 mL/min (90-130) 02/22/24 05:23 Glucose 105 mg/dL (65-115) 02/22/24 05:23 Estimat Average Glucose 111 02/22/24 05:23 Hemoglobin A1c 5.5 % (4.0-6.0) 02/22/24 05:23 Calculated Osmolality 286 mOsm/kg (285-295) 02/22/24 05:23 Calcium 8.8 mg/dL (8.5-10.5) 02/22/24 05:23 Phosphorus 3.6 mg/dL (2.5-4.5) 02/22/24 05:23 Magnesium 2.2 mg/dL (1.7-2.3) 02/22/24 05:23 Iron 51 ug/dL (59-158) L 02/21/24 16:08 TIBC 308 mcg/dl 02/21/24 16:08 % Saturation 16.5 % (20-50) L 02/21/24 16:08 Unsat Iron Binding 257 ug/dL (112-347) 02/21/24 16:08 Total Bilirubin 0.3 mg/dL (0.15-1.2) 02/22/24 05:23 AST 19 U/L (0-40) 02/22/24 05:23 ALT 37 U/L (0-41) 02/22/24 05:23 Alkaline Phosphatase 91 U/L (40-130) 02/22/24 05:23 Troponin T 5th Gen ng/L Cancelled 02/21/24 16:08 Troponin T Baseline 29 ng/L (0-15) H 02/21/24 16:08 Troponin T 120 Minute 29.91 ng/L (0-15) H 02/21/24 18:16 Delta Troponin T 0.91 ABS# (0-10) 02/21/24 18:16 Troponin T Hi Sens 6Hr 30.65 ng/L (0-15) H 02/21/24 22:06 Troponin T Hi Sens 6Hr Delta 1.65 ng/L (0-12) 02/21/24 22:06 Total Protein 6.8 g/dL (6.6-8.7) 02/22/24 05:23 Albumin 3.7 g/dL (3.5-5.2) 02/22/24 05:23 Globulin 3.1 g/dL (1.3-4.6) 02/22/24 05:23 Triglycerides 158 mg/dL (0-150) H 02/22/24 05:23 Cholesterol 165 mg/dL (0-200) 02/22/24 05:23 LDL Cholesterol, Calc 110 mg/dL (50-129) 02/22/24 05:23 HDL Cholesterol 23 mg/dL (60-100) L 02/22/24 05:23 LDL/HDL Ratio 4.78 RATIO (0.00-3.22) H 02/22/24 05:23 Cholesterol/HDL Ratio 7.17 mg/dL (1.0-5.00) H 02/22/24 05:23 Vitamin B12 503 pg/mL (232-1245) 02/21/24 16:08 Folate 6.4 ng/mL (4.5-32.2) 02/22/24 05:23 Procalcitonin 0.07 ng/mL (0-0.5) 02/22/24 05:23 TSH 1.13 uIU/mL (0.27-4.20) 02/21/24 16:08 Urine Color Yellow (Yellow) 02/21/24 19:15 Urine Appearance Clear (CLEAR) 02/21/24 19:15 Urine pH 5.5 (5-7) 02/21/24 19:15 Ur Specific [place] 1.014 (1.005-1.030) 02/21/24 19:15 Urine Protein Negative (Negative) 02/21/24 19:15 Urine Glucose (UA) Negative (Normal) 02/21/24 19:15 Urine Ketones Negative (Negative) 02/21/24 19:15 Urine Blood Negative (Negative) 02/21/24 19:15 Urine Nitrate Negative (Negative) 02/21/24 19:15 Urine Bilirubin Negative (Negative) 02/21/24 19:15 Urine Urobilinogen 1.0 mg/dL (Negative) 02/21/24 19:15 Ur Leukocyte Esterase Negative (Negative) 02/21/24 19:15 Urine RBC 0-2 /hpf (0-2) 02/21/24 19:15 Urine WBC 0-5 /hpf (0-5) 02/21/24 19:15 Ur Squamous Epith Cells 0-5 /hpf (0-5) 02/21/24 19:15 Amorphous Sediment Not Reportable 02/21/24 19:15 Urine Bacteria None seen /hpf (NONE) 02/21/24 19:15 Hyaline Casts 0.81 /lpf 02/21/24 19:15 Urine Opiates Screen Negative ng/mL (Negative) 02/21/24 19:15 Ur Barbiturates Screen Negative ng/mL (Negative) 02/21/24 19:15 Ur Phencyclidine Scrn Negative ng/mL (Negative) 02/21/24 19:15 Ur Amphetamines Screen Negative ng/mL (Negative) 02/21/24 19:15 U Benzodiazepines Scrn Negative ng/mL (Negative) 02/21/24 19:15 Urine Cocaine Screen Negative ng/mL (Negative) 02/21/24 19:15 U Marijuana (THC) Screen Negative ng/mL (Negative) 02/21/24 19:15 Vitals Last Vital Signs Temp 98.7 F 02/22/24 08:00 Pulse 69 02/22/24 08:00 Resp 16 02/22/24 08:00 BP 120/63 02/22/24 08:00 Pulse Ox 95 02/22/24 08:00 O2 Del Method Room Air 02/22/24 08:00 FiO2 21 02/21/24 23:25 Discharge Plan Discharge Patient Disposition: Home Condition: Stable Prescriptions: New aspirin 325 mg Tablet,Delayed Release (Dr/Ec) 325 mg PO DAILY Qty: 30 0RF metoprolol tartrate 25 mg Tablet 25 mg PO BID@0900,2100 Qty: 60 0RF famotidine 20 mg tablet 20 mg PO DAILY Qty: 30 0RF simvastatin 20 mg tablet 20 mg PO DAILY Qty: 30 0RF Continued losartan 50 mg Tablet 50 mg PO DAILY sertraline 50 mg Tablet 50 mg PO DAILY Discharge Orders: Discharge Order (Routine); Ordered 02/22/24 Ordered By: Silvano Nixon Other Ambulatory Orders: Sestamibi Stress Test Request (Routine) Timeframe: 1 Week Facility: [facility] - Location: Cardiac Diagnostic Laboratory Ordered By: Silvano Nixon Referrals: Isabel Gómez, PORTABLE IRRIGATION OPERATOR [Primary Care Provider] - 4-7 days (Please call for an follow-up within 4 to 7 days. Also Centralized Scheduling will contact you to schedule an outpatient stress test. If you haven't heard from them by Friday. Please call ) Discharge Diet: Cardiac Discharge Activity: Resume usual activity and Increase activity as tolerated Patient Instructions: Metoprolol (By mouth) (Lopressor, Toprol XL), Famotidine (By mouth), Aspirin (By mouth), Simvastatin (By mouth) (Zocor), Regadenoson (By injection) (Lexiscan), A-fib (Atrial Fibrillation) (DC), Cardiac Stress Test (GEN), Obstructive Sleep Apnea Discharge Attestations Time Spent in Discharge Care*: greater than 30 min Specific Discharge Activities: educating patient, educating and/or supporting family/caregiver, discussing with pcp/other providers, discussing with catalytic case operator/social workers/dc planners, documenting/other paperwork and evaluating patient/reviewing data Status at Discharge: Cognitive status at discharge: cognitively intact, Behavioral status at discharge: cooperative, Functional status at discharge: independent ambulation, Overall status at discharge: patient is back to baseline Quality Metrics Clinical Quality Measures [ No reported AMI, CVA or VTE this stay] Coding Level of Care Code 44999 Total time (in minutes) for Discharge: 60 Diagnoses Atrial fibrillation with RVR I48.91 Chest pressure R07.89 Morbid obesity E66.01 Obstructive sleep apnea G47.33 HTN (hypertension) I10
--- NOTE | 2024-02-22 15:46 | USCV_ITS ---
Krishna Holder Age: 38 Gender: M : 1985 Exam Date: 02/22/2024 08:53 Ordering Phys: Silvano Nixon MD Technologist: Amanuel Cuello Exam Location: [facility] [place] Indication: afib BP: 146 / 91 HR: 66 Rhythm: Sinus Technical Quality: Adequate MEASUREMENTS (Male / Female) Normal Values 2D ECHO LV Diastolic Diameter PLAX 5.2 cm 4.2 - 5.9 / 3.9 - 5.3 cm IVS Diastolic Thickness 1.7 cm 0.6 - 1.0 / 0.6 - 0.9 cm IVS Systolic Thickness 2.1 cm LVPW Diastolic Thickness 1.8 cm 0.6 - 1.0 / 0.6 - 0.9 cm LVPW Systolic Thickness 2.4 cm LVOT Diameter 2.1 cm LV Ejection Fraction 2D Teich 72.7 % LV Ejection Fraction MOD 4C 63.5 % LV Ejection Fraction MOD 2C 63.8 % LV Ejection Fraction 2C AL 64.2 % LA Diameter 3.8 cm RA Systolic Volume 4C AL 51.4 ml RA Systolic Volume 4C MOD 50.5 ml LA Sys Volume AL 53.8 cm cubed LA Sys Volume Index AL 16.7 cm cubed/m squared Aorta at Sinotubular Diameter 2.6 cm IVC Diameter 1.6 cm M-MODE LA Ao Ratio MM 1.4 AV Cusp Separation MM 1.8 cm DOPPLER AV Peak Velocity 149.0 cm/s LVOT Peak Velocity 123.0 cm/s AV Area Cont Eq vti 2.7 cm squared AV Area Cont Eq pk 2.8 cm squared MV Peak Velocity 116.0 cm/s MV Area PHT 5.7 cm squared Mitral E to A Ratio 1.0 PV Peak Velocity 145.0 cm/s RV Ejection Time 0.3 s FINDINGS Left Ventricle Technically limited quality echocardiogram because of poor ultrasonic windows. Left ventricle is normal in size. LV systolic function is normal with EF of 55 to 60%. No regional wall motion abnormalities. Right Ventricle Normal in size and function Right Atrium Normal in size Left Atrium Normal in size Mitral Valve Grossly normal. Mild mitral regurgitation. Aortic Valve Not well visualized. No significant stenosis or regurgitation. Tricuspid Valve Mild mitral regurgitation. Pulmonary artery systolic pressure is normal Pulmonic Valve Not well visualized Pericardium Normal Aorta Normal in size IVC Appears to be normal CONCLUSIONS Technically limited quality echocardiogram because of poor ultrasonic windows. LV systolic function is normal with EF of 55-60%. Mild mitral regurgitation. Mild mitral regurgitation. No comparison studies are available. Angelito Gates MD (Electronically Signed) Final Date: 22 February 2024 09:51 S
== END 2024-02-22 13:11 | disposition home or self-care (01) | DRG 309 ==
PROVIDERS: Admitting Provider Student in an Organized Health Care Education/Training Program; Family Provider Nurse Practitioner Family; PCP Nurse Practitioner Family; Visit Provider Student in an Organized Health Care Education/Training Program
DX: I48.91 Unspecified atrial fibrillation (principal); Z68.43 Body mass index [BMI] 50.0-59.9, adult; R07.89 Other chest pain; E66.01 Morbid (severe) obesity due to excess calories; G47.33 Obstructive sleep apnea (adult) (pediatric); I10 Essential (primary) hypertension; F32.A Depression, unspecified; Z82.49 Family history of ischemic heart disease and other diseases of the circulatory system; Z87.891 Personal history of nicotine dependence
CPT/HCPCS: 36415; 71045; 80053; 80061; 80306; 81001; 82607; 82746; 83036; 83540; 83550; 83735; 84100; 84145; 84443; 84484; 85025; 85378; 93005; 94660; 94664; 96372; 96376; A9270; C8929; J0283; J1650; J1940; J2470

== ENCOUNTER 2024-03-12 07:16 | Outpatient (CLI) | payer BC, SELFPAY ==
--- NOTE | 2024-03-12 | ECG_ITS ---
[facility] Test Date: 2024-03-12 Pat Name: Krishna Holder Department: Room: Gender: Male Curriculum Writer: : 1985 Requested By: Silvano Nixon Order Number: [id number] Fannie MD: PITER CLEARY Interpretive Statements Lung unchanged pre/post procedure; Intraprocedure shortess of breath; Symptoms resoled by discharge NOTE: Please note that this is the electrocardiogram portion of the Lexiscan/Sestamibi stress test. The perfusion scan will be documented separately. DATA: Baseline heart rate was 60 beats per minute. Baseline blood pressure was 116/45 millimeters of mercury. Target heart rate was 184. Maximum heart rate achieved was 80. which was 43% of the predicted target heart rate. Maximum blood pressure was 124/87 millimeters of mercury. The reason for ending the test was completion of the protocol. The patient did not experience any symptoms. ELECTROCARDIOGRAM: BASELINE: Sinus rhythm. Normal axis. Otherwise, no ST-T changes suggestive of ischemia noted. No arrhythmia noted. EXERCISE: After Lexiscan injection, no ST-T changes suggestive of ischemic noted. No arrhythmia noted. CONCLUSION: Please note due to baseline abnormality of the EKG specificity and sensitivity of the EKG portion of LexiScan MIBI stress test will be low 1. EKG not suggestive of ischemia 2. Lexiscan injection unremarkable. 3. Perfusion scan will be documented separately. Electronically Signed On 03-29-2024 22:44:56 CLASSIFICATION INSPECTOR by PITER CLEARY [id number]
[2024-03-12 07:31] VITALS: BMI 55.4
--- NOTE | 2024-03-12 08:29 | NMCV_ITS ---
NM neida perf SPECT r/s* [id number] Krishna Holder Age: 38 Gender: M : 1985 Exam Date: 03/12/2024 08:31 Ordering Phys: Silvano Nixon MD Technologist: NORM Murphy Exam Location: [facility] [address] Indications: cp STRESS TEST Please see separate stress test report in [facility] for full findings IMAGE PROTOCOL Rest/Stress 1 Lexiscan Day Radiopharmaceutical Dose (mCi) Administration Site Administered by Rest: Tc-99m 10.8 IV Yamile Richey, FIELD TECH Sestamibi Stress:Tc-99m 33 IV Yamile Valverdegle, FIELD TECH Sestamibi Rest: 12-Mar-2024 60 Discovery 630 Stress: 12-Mar-2024 30 Discovery 630 0.4mg Lexiscan. Images obtained in supine and prone position. SPECT RESULTS Technical Quality: Good Raw Data Analysis: Soft tissue attenuation, patient weighs 435lbs Image Corrections: No attenuation or motion correction applied Summed Stress Score: 6 Summed Rest Score: 7 Summed Difference Score: 0 PERFUSION FINDINGS Medium sized area of fixed perfusion defect noted in basal to mid anterior wall suggestive of old myocardial infarction versus scarring. Large area of fixed perfusion defect noted in basal to distal inferior wall suggestive of old myocardial infarction versus scarring. FUNCTIONAL RESULTS (calculated via Gated SPECT) Stress Image LV EF (%): 57 Stress EDV (mL):173 TID: 0.97 Stress ESV (mL):75 FUNCTIONAL FINDINGS: Moderately reduced left ventricular ejection fraction with inferior wall akinesis IMPRESSIONS Medium sized area of old myocardial infarction versus scarring noted in basal to mid anterior wall suggestive of old myocardial infarction versus scarring in LAD territory. Large area of fixed perfusion defect noted in basal to distal inferior wall suggestive of old myocardial infarction versus scarring in possible RCA territory, this study is negative for ischemia. Carlos Flores MD (Electronically Signed) Final Date: 12 March 2024 21:58 S
[2024-03-12] MEDS: regadenoson 0.4 Mg/5 ml Syringe IVP (08:56)
[2024-03-12 09:09] VITALS: BP 121/69; PULSE 72
== END 2024-03-12 07:17 | disposition home or self-care (01) ==
LOC: CDL 07:17
PROVIDERS: Family Provider Nurse Practitioner Family; PCP Nurse Practitioner Family; Visit Provider Student in an Organized Health Care Education/Training Program
DX: R07.9 Chest pain, unspecified (principal); R93.1 Abnormal findings on diagnostic imaging of heart and coronary circulation
CPT/HCPCS: 36415; 78452; 93017; 96375; A9500; J2785

== ENCOUNTER 2024-03-28 11:06 | Observation (INO) | payer BC, SELFPAY ==
[2024-03-28] VITALS (15 sets, daily range): BP systolic 110–132; BP diastolic 58–98; PULSE 60–108; RESP 16–26; TEMP 36.4–36.8; O2SAT 96–98; BMI 57.4; BMI 59.3
--- NOTE | 2024-03-28 11:07 | ECG_ITS ---
[facility] Test Date: 2024-03-28 Pat Name: Krishna Holder Department: Room: Gender: Male Perioperative Manager: : 1985 Requested By: Abbie Keita Order Number: [id number] Greco MD: Angelito Gates M.D. Measurements Intervals [place] Rate: 121 P: 0 ID: 0 QRS: 140 QRSD: 98 T: 41 QT: 325 QTc: 461 Interpretive Statements ATRIAL FIBRILLATION WITH RAPID VENTRICULAR RESPONSE POSSIBLE RIGHT VENTRICULAR HYPERTROPHY [SOME/ALL OF: PROMINENT R IN V1, LATE TRANSITION, RAD, KODI, SSS] Compared to ECG 02/21/2024 23:29:56 Sinus rhythm no longer present Prolonged QT interval no longer present Electronically Signed On 04-01-2024 22:10:52 COPY CHASER by Angelito Gates M.D. [email or web address] [id number]
--- NOTE | 2024-03-28 11:19 | XRR_ITS ---
PROCEDURE INFORMATION: Exam: XR Chest Exam date and time: 03/28/2024 11:27 AM Age: 38 years old Clinical indication: Chest pressure; C/O substernal chest pain radiating into the upper back that has been going on since fri. PT states that he has afib but feels it is not controlled. SOB with exertion. TECHNIQUE: Imaging protocol: Radiologic exam of the chest. Views: 1 view. COMPARISON: CR (CHEST, ) 02/21/2024 5:11 PM FINDINGS: Lungs: Unremarkable. No consolidation. Pleural spaces: Unremarkable. No pleural effusion. No pneumothorax. Heart/Mediastinum: Unremarkable. No cardiomegaly. Bones/joints: Unremarkable. XR/XR chest 1V portable [id number] IMPRESSION: No acute cardiopulmonary process.
--- NOTE | 2024-03-28 11:20 | W.ED.CHESTPA ---
HPI - Chest Pain General: Chief Complaint: Chest Pain Stated Complaint: chest pain , sob Time Seen by Provider: 03/28/24 11:19 History of Present Illness: 38-year-old man with history of morbid obesity, hypertension and recently diagnosed atrial fibrillation who presents emergency room with chest discomfort and palpitations. He is having pain between his shoulder blades and some pressure in his central chest. Heart rate was elevated on my exam to the 120s and and in atrial fibrillation. This is been going on for about 3 days now. He had a stress test which she does not know the results of. His metoprolol was increased from 25-50 about 2 weeks ago. He had been admitted to the hospital for this when he was initially diagnosed about a month ago and was converted back to a sinus rhythm according to his . Related Data Home Medications Medication Instructions Recorded Confirmed losartan 50 mg tablet 50 mg PO DAILY 02/21/24 02/21/24 sertraline 50 mg tablet 50 mg PO DAILY 02/21/24 02/21/24 Previous Rx's Medication Instructions Recorded aspirin 325 mg tablet,delayed 325 mg PO DAILY #30 tabs 02/22/24 release famotidine 20 mg tablet 20 mg PO DAILY #30 tabs 02/22/24 metoprolol tartrate 25 mg tablet 25 mg PO BID@0900,2100 #60 tabs 02/22/24 simvastatin 20 mg tablet 20 mg PO DAILY #30 tabs 02/22/24 Allergies Allergy/AdvReac Type Severity Reaction Status Date / Time Penicillins Allergy ALGY-Anaphy Verified 03/28/24 11:15 laxis Review of Systems Narrative: Constitutional symptoms: Negative except as documented in HPI. Skin symptoms: Negative except as documented in HPI. Eye symptoms: Negative except as documented in HPI. ENMT symptoms: Negative except as documented in HPI. Respiratory symptoms: Negative except as documented in HPI. Cardiovascular symptoms: Negative except as documented in HPI. Gastrointestinal symptoms: Negative except as documented in HPI. Genitourinary symptoms: Negative except as documented in HPI. Musculoskeletal symptoms: Negative except as documented in HPI. Neurologic symptoms: Negative except as documented in HPI. Psychiatric symptoms: Negative except as documented in HPI. Endocrine symptoms: Negative except as documented in HPI. [facility] PFSH: Medical History Family history of premature CAD Obstructive sleep apnea Depression HTN (hypertension) Morbid obesity Family History Grandfather Diabetes paternal Lung cancer maternal Father CAD (coronary artery disease) [place] at the age of 25 Social History Smoking and tobacco/nicotine status: never used tobacco/nicotine Alcohol intake: never Substance/Drug Use: never Adopted: No Caregiver/support person: No Lives independently: No Household members: spouse Marital status: service: No Current occupational status: employed Sexually active: Yes Do you think of yourself as: Straight/Heterosexual Current gender identity: Male Physical Exam Narrative: EXAM NARRATIVE: General: Alert, no acute distress. Skin: Warm, dry. Head: Normocephalic, atraumatic. Neck: Supple, trachea midline. Eye: Extraocular movements are intact. Ears, nose, mouth and throat: mucosa moist. Cardiovascular: Irregularly irregular, tachycardic, normal peripheral perfusion. Respiratory: Lungs are clear to auscultation, respirations are non-labored, breath sounds are equal, Symmetrical chest wall expansion. Gastrointestinal: Soft, Nontender, Non distended Musculoskeletal: Normal ROM, no deformity. Neurological: Alert and oriented, No focal neurological deficit observed. Psychiatric: Cooperative, appropriate mood & affect. Course Vital Signs: Vital signs: Vital Signs Temperature 97.5 F L 03/28/24 11:08 Pulse Rate 74 03/28/24 12:00 Respiratory Rate 22 H 03/28/24 12:00 Blood Pressure 126/98 03/28/24 12:00 Pulse Oximetry 97 03/28/24 12:00 Oxygen Delivery Me thod Room Air 03/28/24 12:00 MDM - Chest Pain Medical Decision Making Differential diagnosis for patient with chest pain includes but is not limited to and based on the above HPI, review of systems and physical exam: Pneumonia. unstable angina. angina. Acute coronary syndrome / [place]. Pulmonary embolism. Costochondritis / musculoskeletal. Pleurisy. Pericarditis. Esophageal spasm. Pancreatis. Cholecystitis. Orders placed to evaluate differential diagnosis based on the above differential, HPI and physical exam EKG: Time 1108. Rate 121. Atrial fibrillation with rapid ventricular response, No ST-T changes, no ectopy, This was reviewed and interpreted by myself the ER physician at 1110 Chest x-ray: No acute process. No infiltrate. No pneumothorax. This was reviewed and interpreted by myself the emergency room physician. I also reviewed the radiology report. Lab Review: Laboratory results were reviewed and interpreted by myself the emergency room physician. Lab work is unremarkable. No leukocytosis. No anemia. No renal failure. Initial troponin is negative. Flu and COVID are negative. I reviewed the patient's medical record. Reexamination: Rate has decreased into the 70s but remains in atrial fibrillation on the monitor. No increased work of breathing. No altered mental status. No focal motor deficits. Consultation: I spoke with Dr. Vinson who is on-call for the hospitalist service. He is admitting the patient and recommends cardiology consultation. Consultation: I spoke with Dr. Gates who is on-call for cardiology and he agrees to consultation and will see the patient. Assessment and plan: A-fib with RVR Chest pain ?Diltiazem bolus and drip. Rate has improved but he is still in atrial fibrillation. -I discussed the patient with the hospitalist on-call who is admitting the patient. - Discussed findings and plan with patient. Answered any questions. - All laboratory values were reviewed and interpreted personally by myself, the ER physician - All imaging was reviewed and interpreted personally by myself, the ER physician. - Evaluation and treatment of this problem were appropriate in the emergency setting Lab Data 03/28/24 11:25 03/28/24 11:25 Radiology Impressions Chest X-Ray 03/28/24 11:19 IMPRESSION: No acute cardiopulmonary process. Laboratory Results WBC 10.14 10^3/uL (3.29-11.43) 03/28/24 11:25 RBC 5.33 10^6/uL (3.85-5.65) 03/28/24 11:25 Hgb 13.90 g/dL (11.27-16.99) 03/28/24 11:25 Hct 42.5 % (37-53) 03/28/24 11:25 MCV 79.7 fl (82-101) L 03/28/24 11:25 MCH 26.1 pg (27-33) L 03/28/24 11: MCHC 32.7 g/dL (30-55) 03/28/24 11:25 RDW 14.4 % (12.1-15.1) 03/28/24 11:25 Plt Count 271 10^3/cmm (157-399) 03/28/24 11:25 MPV 9.5 fL (7.4-10.4) 03/28/24 11:25 Neut % (Auto) 63.8 % 03/28/24 11:25 Lymph % (Auto) 25.4 % 03/28/24 11:25 [place] % (Auto) 7.2 % 03/28/24 11:25 Eos % (Auto) 2.7 % 03/28/24 11:25 Baso % (Auto) 0.4 % 03/28/24 11:25 Neut # (Auto) 6.47 10^3/uL (1.8-7.7) 03/28/24 11:25 Lymph # (Auto) 2.6 10^3/uL (0.8-4.8) 03/28/24 11:25 [place] # (Auto) 0.7 10^3/uL (0.2-0.9) 03/28/24 11:25 Eos # (Auto) 0.3 10^3/uL (0.0-0.8) 03/28/24 11:25 Baso # (Auto) 0.0 10^3/uL (0.0-0.1) 03/28/24 11:25 Nucleated RBC % (auto) 0 % 03/28/24 11:25 Nucleated RBCs # 0.0 /100WBC 03/28/24 11:25 Sodium 141 mmol/L (136-145) 03/28/24 11:25 Potassium 4.0 mmol/L (3.5-5.1) 03/28/24 11:25 Chloride 103 mmol/L (98-107) 03/28/24 11:25 Carbon Dioxide 29 mmol/L (22-29) 03/28/24 11:25 Anion Gap 13.0 (5-19) 03/28/24 11:25 BUN 11 mg/dL (6-20) 03/28/24 11:25 Creatinine 0.9 mg/dL (0.7-1.2) 03/28/24 11:25 GFR Calculation 95.5 mL/min (90-130) 03/28/24 11:25 Glucose 113 mg/dL (65-115) 03/28/24 11:25 Calculated Osmolality 292 mOsm/kg (285-295) 03/28/24 11:25 Calcium 8.6 mg/dL (8.5-10.5) 03/28/24 11:25 Magnesium 2.1 mg/dL (1.7-2.3) 03/28/24 11:25 Total Bilirubin 0.2 mg/dL (0.15-1.2) 03/28/24 11:25 AST 16 U/L (0-40) 03/28/24 11:25 ALT 26 U/L (0-41) 03/28/24 11:25 Alkaline Phosphatase 95 U/L (40-130) 03/28/24 11:25 Troponin T Baseline < 6 ng/L (0-15) 03/28/24 11:25 NT-Pro-B Natriuret Pep 1594 pg/mL (0-125) H 03/28/24 11:25 Total Protein 6.0 g/dL (6.6-8.7) L 03/28/24 11:25 Albumin 3.7 g/dL (3.5-5.2) 03/28/24 11:25 Globulin 2.3 g/dL (1.3-4.6) 03/28/24 11:25 TSH 2.00 uIU/mL (0.27-4.20) 03/28/24 11:25 Coronavirus (PCR) Negative (Negative) 03/28/24 11:45 Influenza A (PCR) Negative (Negative) 03/28/24 11:45 Influenza Type B (PCR) Negative (Negative) 03/28/24 11:45 RSV (PCR) Negative (Negative) 03/28/24 11:45 All radiology interpretation(s) finalized by discharge Discharge Plan Discharge Patient Disposition: Admitted As Inpatient Admit Provider: Vamsi Vinson Clinical Impression: Atrial fibrillation with rapid ventricular response, Chest pain Condition: Stable Coding Level of Care Code ED Dealer Relationship Manager for Chelsey Seo
[2024-03-28 11:30] LABS: Basophils % 0.4 %; Eosinophils # 0.3 10^3/uL (0.0-0.8); Eosinophils % 2.7 %; Hematocrit 42.5 % (37-53); Lymphocytes # 2.6 10^3/uL (0.8-4.8); Lymphocytes % 25.4 %; Mean Corpuscular HGB Conc 32.7 g/dL (30-55); Mean Corpuscular Hemoglobin 26.1 pg (27-33); Mean Corpuscular Volume 79.7 fl (82-101); Mean Platelet Volume 9.5 fL (7.4-10.4); Monocytes # 0.7 10^3/uL (0.2-0.9); Monocytes % 7.2 %; Neutrophils # 6.47 10^3/uL (1.8-7.7); Neutrophils % 63.8 %; Nucleated Red Blood Cells % 0 %; Platelet Count 271 10^3/cmm (157-399); Red Blood Count 5.33 10^6/uL (3.85-5.65); Red Cell Distribution Width 14.4 % (12.1-15.1); White Blood Count 10.14 10^3/uL (3.29-11.43)
[2024-03-28 11:53] LABS: Troponin(5th) Baseline < 6 ng/L (0-15)
[2024-03-28] MEDS: dilTIAZem 5 mg/mL SDV 5 mL 20 MG IVP (11:53)
[2024-03-28 12:00] LABS: Alanine Aminotransferase 26 U/L (0-41); Albumin Level 3.7 g/dL (3.5-5.2); Alkaline Phosphatase 95 U/L (40-130); Aspartate Amino Transferase 16 U/L (0-40); Blood Urea Nitrogen 11 mg/dL (6-20); Calcium 8.6 mg/dL (8.5-10.5); Carbon Dioxide 29 mmol/L (22-29); Chloride 103 mmol/L (98-107); Creatinine Clr Calc Pharmacy 198.1925; Globulin 2.3 g/dL (1.3-4.6); Glomerular Filtration Rate 95.5 mL/min (90-130); Glucose 113 mg/dL (65-115); Magnesium 2.1 mg/dL (1.7-2.3); NT Pro B Type Natriuretic Pept 1594 pg/mL (0-125); Osmolality Calculated 292 mOsm/kg (285-295); Sodium 141 mmol/L (136-145); Total Bilirubin 0.2 mg/dL (0.15-1.2)
--- NOTE | 2024-03-28 12:05 | P.HP_ITS ---
Providers/Chief Complaint 2 Primary Care Provider: Isabel Gómez NP Chief Complaint: chest pain , sob History of Present Illness Krishna Holder is a 38 year old male with a past medical history significant for hypertension, atrial fibrillation, obstructive sleep apnea, and obesity who presents emergency department with chest discomfort associated with palpitations. Of note patient was fairly recently diagnosed with atrial fibrillation. He was started on metoprolol which was subsequently doubled by his PCP recently due to persistent symptoms. He reports since hospital discharge, he continues to have the sensation that he is popping in and out of atrial fibrillation. He states that the symptoms have been persistent since . He states even minimal exertion causes severe symptoms including chest pressure, palpitations, shortness of breath and diaphoresis. In the emergency department, he was found to be in atrial fibrillation with fast ventricular rate. He is being started on a Cardizem drip for rate control. Patient does have a history of sleep apnea. Endorses compliance with his CPAP. Patient Dors extensive family history of coronary disease. His father has coronary disease. His paternal grandfather suffered a myocardial infarction during his 20s. Patient just recently underwent cardiac stress testing. Chart review shows the sestamibi stress portion still pending with the perfusion scan showing evidence of medium sized area of old SD versus scarring in the basal to mid anterior wall suggestive of old SD versus scarring in the LAD territory. There is also a large area of fixed perfusion deficit in the basal to distal inferior wall also suggestive of old SD versus scarring in the possible RCA territory. Review of Systems 2 Narrative: A complete review of systems was obtained and is negative except as stated in HPI. Medications/Allergies Home Medications Medication Instructions Recorded Confirmed Last Taken Type losartan 50 mg tablet 50 mg PO DAILY 02/21/24 03/28/24 03/27/24 History sertraline 50 mg tablet 50 mg PO DAILY 02/21/24 03/28/24 03/27/24 History aspirin 325 mg tablet,delayed 325 mg PO DAILY #30 tabs 02/22/24 03/28/24 03/27/24 Rx release famotidine 20 mg tablet 20 mg PO DAILY #30 tabs 02/22/24 03/28/24 03/27/24 Rx metoprolol tartrate 25 mg tablet 25 mg PO BID@0900,2100 #60 tabs 12/29/24 02/02/25 02/01/25 Rx simvastatin 20 mg tablet 20 mg PO DAILY #30 tabs 02/22/24 03/28/24 03/27/24 Rx Allergies Allergy/AdvReac Type Severity Reaction Status Date / Time Penicillins Allergy ALGY-Anaphy Verified 03/28/24 11:15 laxis PFSH Acute 2 PFSH: Medical History Family history of premature CAD Obstructive sleep apnea Depression HTN (hypertension) Morbid obesity Surgical History No pertinent past surgical history Family History Grandfather Diabetes paternal Lung cancer maternal Father CAD (coronary artery disease) [place] at the age of 25 Social History (Updated 03/28/24 @ 13:32 by Vamsi Vinson MD) Smoking and tobacco/nicotine status: never used tobacco/nicotine Alcohol intake: never Substance/Drug Use: never Adopted: No Caregiver/support person: No Lives independently: No Household members: spouse Marital status: service: No Current occupational status: employed 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 Sexually active: Yes Do you think of yourself as: Straight/Heterosexual Current gender identity: Male Vitals/I&O/Wt Last Vital Signs Temp 97.5 F L 03/28/24 11:08 Pulse 108 H 03/28/24 11:45 Resp 24 H 03/28/24 11:45 BP 110/87 03/28/24 11:45 Pulse Ox 96 03/28/24 11:45 O2 Del Method Room Air 03/28/24 11:45 Weight last 48 hrs Weight 192.323 kg Physical Exam 2 Narrative: General: Patient is awake and alert. Head: Normocephalic. Atraumatic. EOM intact. Neck: No JVD. Cardiovascular: No gallops. No murmurs. Irregularly irregular rhythm. Slightly tachycardic. Lungs: Clear to auscultation, no use of accessory muscles, no crackles or wheezes. Skin: No jaundice. No rashes. Abdomen: Normal bowel sounds, abdomen soft and nontender. Genito Urinary: Genital exam not performed since complaints not related. Rectal: Rectal exam not performed since no symptoms indicated blood loss. Extremities: No cyanosis or clubbing. Musculoskeletal: No swollen or erythematous joints. Neurological: Moves all 4 extremities. No myoclonus. Data 03/28/24 11:25 03/28/24 11:25 A&P Assessment and plan (1) Atrial fibrillation with RVR: Problems occasional atrial fibrillation with left ventricular rate History suggest symptoms are poorly controlled TSH within normal limits Potassium normal, backorder magnesium Status post IV Cardizem push, starting drip Continuous telemetry monitoring Hold home losartan to allow room for AV kaley blocking agents on hemodynamics Hold metoprolol Given risk factors, age, chest pressures, stress test results, poor control of symptoms, will request cardiology evaluation (2) Chest pain: Recent stress test noted As above (3) HTN (hypertension): Hold losartan while titrating AV kaley blocking agents (4) Obstructive sleep apnea: Encourage continued compliance to CPAP Untreated sleep apnea complicates A-fib management (5) Morbid obesity: Would benefit from weight loss Plan DVT prophylaxis: Lovenox Attestations 2 Medical Necessity Statement*: Patient presents with chest pressure associated symptoms, found to have atrial fibrillation with rapid ventricular rate and concern for possible unstable angina for expected hospitalization to cross 2 midnights for telemetry monitoring, titration of atrial fibrillation medications, and cardiology evaluation. Coding Level of Care Code Acute Code for [facility] Diagnoses Atrial fibrillation with RVR I48.91 Chest pain R07.9 HTN (hypertension) I10 Obstructive sleep apnea G47.33 Morbid obesity E66.01
[2024-03-28 12:26] LABS: Influenza A NEGATIVE (Negative); Influenza B NEGATIVE (Negative); Respiratory Syncytial Virus Ce NEGATIVE (Negative); SARS-CoV-2 PCR NEGATIVE (Negative)
--- NOTE | 2024-03-28 12:32 | PC.NURSE ---
report called to Jelena BRADFORD CSU.
--- NOTE | 2024-03-28 13:27 | ECG_ITS ---
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 Measurements Intervals [place] Rate: 66 P: 53 SC: 196 QRS: 121 QRSD: 113 T: 44 QT: 468 QTc: 493 Interpretive Statements SINUS RHYTHM POSSIBLE RIGHT VENTRICULAR HYPERTROPHY [SOME/ALL OF: PROMINENT R IN V1, LATE TRANSITION, RAD, KODI, SSS] PROLONGED QT INTERVAL Compared to ECG 03/28/2024 11:08:24 Prolonged QT interval now present Atrial fibrillation no longer present Electronically Signed On 04-01-2024 22:25:18 CONDITIONING ROOM WORKER by Angelito Gates M.D. [id number] [id number]
--- NOTE | 2024-03-28 14:15 | PC.NURSE ---
Diltiazem drip not started as it is contraindicated per vital signs. Patient is currently in sinus rhythm at a rate of 66, blood pressure 114/58. Patient reports no chest pain at this time.
--- NOTE | 2024-03-28 14:31 | P.CONIM_ITS ---
Providers/Reason For Consult 2 Consulting Physician/Specialty*: Angelito Gates MD/ Cardiology Reason for Consult*: Atrial fibrillation with RVR Requesting Physician: Dr Suarez Attending Physician: Vamsi Vinson MD Primary Care Provider: Isabel Gómez NP History of Present Illness History of Present Illness Krishna Holder is a 38 year old male with past medical history of obstructive sleep apnea, hypertension who was recently diagnosed with atrial fibrillation and was admitted to hospital. Came back in again because he was having palpitations and discomfort between shoulder blades. He had a recent stress test that showed fixed perfusion defects but no ischemia. Echo showed normal LV systolic function. Since patient is back in sinus rhythm, no more discomfort. Troponins are not trending up. EKG shows sinus rhythm with no significant ST-T wave changes. Review of Systems 2 Narrative: A complete review of systems was obtained and is negative except as stated in HPI. Medications/Allergies Home Medications Medication Instructions Recorded Confirmed Last Taken Type losartan 50 mg tablet 50 mg PO DAILY 02/21/24 03/28/24 03/27/24 History sertraline 50 mg tablet 50 mg PO DAILY 02/21/24 03/28/24 03/27/24 History aspirin 325 mg tablet,delayed 325 mg PO DAILY #30 tabs 02/22/24 03/28/24 03/27/24 Rx release famotidine 20 mg tablet 20 mg PO DAILY #30 tabs 02/22/24 03/28/24 03/27/24 Rx simvastatin 20 mg tablet 20 mg PO DAILY #30 tabs 02/22/24 03/28/24 03/27/24 Rx metoprolol tartrate 25 mg tablet 50 mg PO BID@0900,2100 03/28/24 03/28/24 03/27/24 History Allergies Allergy/AdvReac Type Severity Reaction Status Date / Time Penicillins Allergy ALGY-Anaphy Verified 03/28/24 11:15 laxis PFSH Acute 2 PFSH: Medical History Family history of premature CAD Obstructive sleep apnea Depression HTN (hypertension) Morbid obesity Surgical History No pertinent past surgical history Family History Grandfather Diabetes paternal Lung cancer maternal Father CAD (coronary artery disease) [place] at the age of 25 Social History Smoking and tobacco/nicotine status: never used tobacco/nicotine Alcohol intake: never Substance/Drug Use: never Adopted: No Caregiver/support person: No Lives independently: No Household members: spouse Marital status: service: No Current occupational status: employed 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 Sexually active: Yes Do you think of yourself as: Straight/Heterosexual Current gender identity: Male Vitals/I&O/Wt Last Vital Signs Temp 97.5 F L 03/28/24 11:08 Pulse 66 03/28/24 14:00 Resp 25 H 03/28/24 13:10 BP 114/58 03/28/24 13:10 Pulse Ox 96 03/28/24 13:10 O2 Del Method Room Air 03/28/24 12:51 Weight last 48 hrs Weight 437 lb 4 oz Weight 424 lb Physical Exam 2 Narrative: GENERAL: Patient is alert, awake and oriented x3. HEART: Regular S1 and S2. No murmur, rub or gallop. LUNGS: Clear to auscultate bilaterally. CENTRAL NERVOUS SYSTEM: Grossly nonfocal. EXTREMITIES: Lower extremities with out edema bilaterally. Data 03/28/24 11:25 03/29/24 01:40 A&P Assessment and plan (1) Atrial fibrillation with RVR: (2) HTN (hypertension): (3) Chest pain: Plan Patient has multiple risk factors for CAD however had a recent stress test not showing significant ischemia. Showed prior scar tissue however it could be attenuation artifact given his weight. He has a family history of CAD, morbid obesity, obstructive sleep apnea and hypertension. At this time shared decision made to continue with medical therapy. However if he has more chest pain episodes overnight while in sinus rhythm or troponins trend up, we will proceed with coronary angiogram. Otherwise likely discharge tomorrow. Switch metoprolol to Cardizem to 40 mg daily. Full dose aspirin at home. [id number] score is 1. Thank you for involving us with care of this patient. Will continue to follow. Please call with questions. Consult Attestations 2 Medical Necessity Statement: Care not expected to cross 2 midnights. Coding Level of Care Code Acute Code for [facility] Fwd Diagnoses Atrial fibrillation with RVR I48.91 HTN (hypertension) I10 Chest pain R07.9
[2024-03-28 14:43] LABS: Troponin 5 2HR Delta 0.00001 ABS# (0-10)
--- NOTE | 2024-03-28 17:05 | ECG_ITS ---
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 Measurements Intervals [place] Rate: 64 P: 39 DE: 189 QRS: 99 QRSD: 111 T: 39 QT: 471 QTc: 489 Interpretive Statements SINUS RHYTHM POSSIBLE LEFT ATRIAL ENLARGEMENT [-0.1mV P-WAVE IN V1/V2] BORDERLINE RIGHT AXIS DEVIATION [QRS AXIS > 90] MODERATE INTRAVENTRICULAR CONDUCTION DELAY [110+ ms QRS DURATION] PROLONGED QT INTERVAL Compared to ECG 03/28/2024 13:50:13 Intraventricular conduction delay now present Electronically Signed On 04-01-2024 22:24:57 CRM TECHNICAL LEAD by Angelito Gates M.D. [email or web address]
[2024-03-28 18:12] LABS: Troponin 5 6HR Delta 0.00001 ng/L (0-12)
[2024-03-28] MEDS: enoxaparin 40 mg/0.4 mL Syringe SUBCUT (20:14)
[2024-03-29] VITALS: BP 129/79; PULSE 70; RESP 18; TEMP 36.8; O2SAT 97
[2024-03-29 02:59] LABS: Anion Gap 15.9 (5-19); Blood Urea Nitrogen 15 mg/dL (6-20); Calcium 8.6 mg/dL (8.5-10.5); Carbon Dioxide 26 mmol/L (22-29); Chloride 105 mmol/L (98-107); Creatinine Clr Calc Pharmacy 181.8457; Glomerular Filtration Rate 84.5 mL/min (90-130); Glucose 103 mg/dL (65-115); Osmolality Calculated 297 mOsm/kg (285-295); Potassium 3.9 mmol/L (3.5-5.1); Sodium 143 mmol/L (136-145)
[2024-03-29 04:00] VITALS: BP 139/75; PULSE 70; RESP 17; TEMP 36.6; O2SAT 96
[2024-03-29 05:45] VITALS: PULSE 66
[2024-03-29 07:17] VITALS: BP 125/68; PULSE 69; RESP 22; TEMP 36.1; O2SAT 94
[2024-03-29] MEDS: dilTIAZem ER (24HR) 240 mg Capsule PO (11:13)
[2024-03-29 11:16] VITALS: BP 139/89; PULSE 75; RESP 21; TEMP 36.7; O2SAT 95
--- NOTE | 2024-03-29 11:32 | P.PN_ITS ---
<Statement entered by Angelito Gates M.D - 03/30/24 00:04> Patient was evaluated and cared for in conjunction with an advanced practice practitioner. I personally examined the patient and reviewed the chart and all pertinent data including imaging, telemetry, and laboratory results. I discussed the patient in detail with the advanced practice practitioner. Please see their note for complete progress note, results and agreed upon plan of care for the patient. Patient doing well. No chest pain GENERAL: Patient is alert and oriented x 3 HEART: Regular S1 and S2 LUNGS: Clear to auscultation bilaterally EXTREMITIES: Lower extremities with no edema Patient has no more chest pain episodes. Continue medical therapy at this time. If in future has chest pain episodes unrelated to afib, can perform angiogram. Cardizem 240mg daily. Aspirin 324mg daily. Outpatient cardiology follow up Subjective 2 Subjective: Patient doing well this morning. No acute chest pain or any events overnight. He denies any significant shortness of breath. States that his previous episodes of chest discomfort were directly related to his arrhythmia and that once he went back into normal sinus his chest pain subsided. Pepito Vascor is 1. He is currently sinus rhythm rate controlled. Vitals/I&O/Wt Last Vital Signs Temp 98.0 F 03/29/24 11:16 Pulse 75 03/29/24 11:16 Resp 21 H 03/29/24 11:16 BP 139/89 03/29/24 11:16 Pulse Ox 95 03/29/24 11:16 O2 Del Method Room Air 03/29/24 11:16 03/28/24 03/29/24 03/29/24 22:59 06:59 14:59 Intake Total 480 / 480 Balance 480 / 480 Weight last 48 hrs Weight 428 lb 8 oz Weight 437 lb 4 oz Weight 424 lb Physical Exam 2 Narrative: General: No apparent distress, healthy appearing, obese HENMT: normoceophalic Muskuloskeletal: Full ROM Lymphatic: no lymphedema noted Respiratory: Normal respiratory effort, clear to auscultation bilaterally throughout all lung jones, no use of accessory muscles Cardio: No JVD, regular rate, regular rhythm, S1 S2 normal, no murmurs, peripheral pulses 2+ radial palpated bilaterally GI: Normal to inspection, nondistended, abdominal obesity present Extremities: Full ROM, normal, normal capillary refill, no cyanosis or edema Neuro: Alert and oriented x4, no focal motor deficits Psych: Affect normal, denies suicidal ideation, mental status grossly normal Skin: No rashes or lesions noted, no wounds Data 03/28/24 11:25 03/29/24 01:40 A&P Assessment and plan (1) Atrial fibrillation with RVR: (2) HTN (hypertension): (3) Chest pain: Plan Patient has multiple risk factors for CAD however had a recent stress test not showing significant ischemia. He states that he has not been having any chest pain. Troponins have remained negative. He states since he went back in a normal sinus rhythm he has had no issues. I did have a discussion with him about his history of sleep apnea. He states he is not completely compliant with his CPAP. He is encouraged to do so. At this time we will switch patient from metoprolol to Cardizem 240 mg daily. Also, patient states he is having some leg cramps with his rosuvastatin. Will switch to atorvastatin and re-evaluate. Will send patient home with an event monitor. We will closely monitor him on an outpatient basis. In the future, if he develops any unusual chest pain we will consider proceeding with a coronary artery angiogram but at this time he remains asymptomatic. From a heart standpoint, he may be discharged home with f/u in 8- 10 days. Attestations 2 Medical Necessity Statement*: From a cardiology standpoint, patient may be discharged. Coding Level of Care Code Acute Code for [facility] Fwd Diagnoses Atrial fibrillation with RVR I48.91 HTN (hypertension) I10 Chest pain R07.9
--- NOTE | 2024-03-29 12:27 | P.DS_ITS ---
Discharge Providers Date of Admission: 03/28/24 12:08 Date of Discharge: March 29, 2024 Attending Provider at Admission: Vamsi Vinson MD Attending Provider at Discharge: Lesa Lara MD Primary Care Provider: Isabel Gómez NP Diagnoses at Discharge Discharge Diagnosis (1) Atrial fibrillation with RVR: Status: Acute (2) HTN (hypertension): Status: Acute (3) Chest pain: Status: Acute Reason for Visit Reason for Visit: chest pain , sob Brief History: 38 year old male with a past medical his tory significant for hypertension, atrial fibrillation, obstructive sleep apnea, and obesity who presents emergency department with chest discomfort associated with palpitations. Patient had recently been diagnosed with atrial fibrillation. He was started initially on a Cardizem infusion and managed with that. He had a recent stress test that showed fixed perfusion defects but no ischemia. Echo showed normal LV systolic function. Cardiology service was consulted. Since patient did not have any active chest pain, stress test did not show any significant ischemia, possibly prior scar tissue versus attenuation artifact, coronary angiogram was deferred for now. Chest pain resolved once rate was controlled. Patient was switched from metoprolol to Cardizem at the time of discharge. He is recommended to continue full dose aspirin.[id number] score is 1. He is encouraged to be compliant with CPAP as uncontrolled sleep apnea could result in A-fib RVR. He is being discharged today with arrangements being made for an event monitor at the time of discharge. He is being discharged today in improved condition. Simvastatin was changed to atorvastatin per cardiology recommendations as patient reported having muscle pains with simvastatin. Physical Exam Narrative: General: No acute distress, AO x3 HEENT: PERRLA, pupils bilaterally equal and reactive, pallors not present Chest: Normal vesicular breath sounds, no added sounds, equal good air entry bilaterally CVS: S1-S2 regular, no murmurs, no tachycardia, no gallops, no rubs Abdomen: Soft, nontender, no organomegaly, bowel sounds present Neuro: No focal deficits, no facial deformity, AO x3, power 5/5 in all limbs Discharge Data Studies Completed and Pending Completed Studies During Hospitalization Category Date Time Status XR chest 1V portable [id number] Stat Exams 03/28/24 11:19 Completed Radiology Impressions Chest X-Ray 03/28/24 11:19 IMPRESSION: No acute cardiopulmonary process. Laboratory Results WBC 10.14 10^3/uL (3.29-11.43) 03/28/24 11:25 RBC 5.33 10^6/uL (3.85-5.65) 03/28/24 11:25 Hgb 13.90 g/dL (11.27-16.99) 03/28/24 11:25 Hct 42.5 % (37-53) 03/28/24 11:25 MCV 79.7 fl (82-101) L 03/28/24 11:25 MCH 26.1 pg (27-33) L 03/28/24 11:25 MCHC 32.7 g/dL (30-55) 03/28/24 11:25 RDW 14.4 % (12.1-15.1) 03/28/24 11:25 Plt Count 271 10^3/cmm (157-399) 03/28/24 11:25 MPV 9.5 fL (7.4-10.4) 03/28/24 11:25 Neut % (Auto) 63.8 % 03/28/24 11:25 Lymph % (Auto) 25.4 % 03/28/24 11:25 [place] % (Auto) 7.2 % 03/28/24 11:25 Eos % (Auto) 2.7 % 03/28/24 11:25 Baso % (Auto) 0.4 % 03/28/24 11:25 Neut # (Auto) 6.47 10^3/uL (1.8-7.7) 03/28/24 11:25 Lymph # (Auto) 2.6 10^3/uL (0.8-4.8) 03/28/24 11:25 [place] # (Auto) 0.7 10^3/uL (0.2-0.9) 03/28/24 11:25 Eos # (Auto) 0.3 10^3/uL (0.0-0.8) 03/28/24 11:25 Baso # (Auto) 0.0 10^3/uL (0.0-0.1) 03/28/24 11:25 Nucleated RBC % (auto) 0 % 03/28/24 11:25 Nucleated RBCs # 0.0 /100WBC 03/28/24 11:25 Sodium 143 mmol/L (136-145) 03/29/24 01:40 Potassium 3.9 mmol/L (3.5-5.1) 03/29/24 01:40 Chloride 105 mmol/L (98-107) 03/29/24 01:40 Carbon Dioxide 26 mmol/L (22-29) 03/29/24 01:40 Anion Gap 15.9 (5-19) 03/29/24 01:40 BUN 15 mg/dL (6-20) 03/29/24 01:40 Creatinine 1.0 mg/dL (0.7-1.2) 03/29/24 01:40 GFR Calculation 84.5 mL/min (90-130) L 03/29/24 01:40 Glucose 103 mg/dL (65-115) 03/29/24 01:40 Calculated Osmolality 297 mOsm/kg (285-295) H 03/29/24 01:40 Calcium 8.6 mg/dL (8.5-10.5) 03/29/24 01:40 Magnesium 2.0 mg/dL (1.7-2.3) 03/29/24 01:40 Total Bilirubin 0.2 mg/dL (0.15-1.2) 03/28/24 11:25 AST 16 U/L (0-40) 03/28/24 11:25 ALT 26 U/L (0-41) 03/28/24 11:25 Alkaline Phosphatase 95 U/L (40-130) 03/28/24 11:25 Troponin T Baseline < 6 ng/L (0-15) 03/28/24 11:25 Troponin T 120 Minute 6.00 ng/L (0-15) 03/28/24 14:20 Delta Troponin T 0.29096 ABS# (0-10) 03/28/24 14:20 Troponin T Hi Sens 6Hr 6.00 ng/L (0-15) 03/28/24 17:37 Troponin T Hi Sens 6Hr Delta 0.33000 ng/L (0-12) 03/28/24 17:37 NT-Pro-B Natriuret Pep 1594 pg/mL (0-125) H 03/28/24 11:25 Total Protein 6.0 g/dL (6.6-8.7) L 03/28/24 11:25 Albumin 3.7 g/dL (3.5-5.2) 03/28/24 11:25 Globulin 2.3 g/dL (1.3-4.6) 03/28/24 11:25 TSH 2.00 uIU/mL (0.27-4.20) 03/28/24 11:25 Coronavirus (PCR) Negative (Negative) 03/28/24 11:45 Influenza A (PCR) Negative (Negative) 03/28/24 11:45 Influenza Type B (PCR) Negative (Negative) 03/28/24 11:45 RSV (PCR) Negative (Negative) 03/28/24 11:45 Vitals Last Vital Signs Temp 98.0 F 03/29/24 11:16 Pulse 75 03/29/24 11:16 Resp 21 H 03/29/24 11:16 BP 139/89 03/29/24 11:16 Pulse Ox 95 03/29/24 11:16 O2 Del Method Room Air 03/29/24 11:16 Discharge Plan Discharge Patient Disposition: Home Condition: Stable Prescriptions: New diltiazem HCl 240 mg Capsule,Extended Release 24hr 240 mg PO DAILY 30 Days Qty: 30 0RF atorvastatin 40 mg tablet 40 mg PO DAILY Qty: 30 0RF Continued sertraline 50 mg Tablet 50 mg PO DAILY aspirin 325 mg Tablet,Delayed Release (Dr/Ec) 325 mg PO DAILY Qty: 30 0RF famotidine 20 mg tablet 20 mg PO DAILY Qty: 30 0RF Discontinued losartan 50 mg Tablet 50 mg PO DAILY simvastatin 20 mg tablet 20 mg PO DAILY Qty: 30 0RF metoprolol tartrate 25 mg tablet 50 mg PO BID@0900,2100 Discharge Orders: Discharge Order (Routine); Ordered 03/29/24 Ordered By: Lesa Lara Other Ambulatory Orders: MCT/Event Monitor 21 Days (Routine) Timeframe: [id number] Facility: [facility] - Location: Radiology Ordered By: Lesa Lara Referrals: Connie Kidd NP [Nurse Practitioner] - 7-10 days Isabel Gómez NP [Primary Care Provider] - 4-7 days Discharge Diet: Cardiac Discharge Activity: Increase activity as tolerated Patient Instructions: Diltiazem (By mouth) (Cardizem, Cardizem CD, Cardizem LA, Cardizem SR), Atorvastatin (By mouth) (Lipitor, Atorvaliq), A-fib (Atrial Fibrillation) (DC), Chest Pain (DC), Opioid Safety Discharge Attestations Time Spent in Discharge Care*: greater than 30 min Status at Discharge: Cognitive status at discharge: cognitively intact , Behavioral status at discharge: cooperative , Quality Metrics Clinical Quality Measures [ No reported AMI, CVA or VTE this stay] Coding Level of Care Code Acute Code for [facility] Fwd Diagnoses Atrial fibrillation with RVR I48.91 HTN (hypertension) I10 Chest pain R07.9
--- NOTE | 2024-03-29 15:27 | PC.NURSE ---
Discharge Note Patient discharged to home via POV accompanied by spouse. Discharge instructions reviewed with patient and/or junior sales representative. Mobile pharmacy medications and/or prescriptions provided. Belongings/home medications returned.
== END 2024-03-29 15:29 | disposition home or self-care (01) ==
LOC: ER 11:20 → CSU 12:36
PROVIDERS: Admitting Provider Internal Medicine; Emergency Provider Emergency Medicine; Family Provider Nurse Practitioner Family; PCP Nurse Practitioner Family; Visit Provider Student in an Organized Health Care Education/Training Program
DX: I48.91 Unspecified atrial fibrillation (principal); I10 Essential (primary) hypertension; G47.33 Obstructive sleep apnea (adult) (pediatric); Z88.0 Allergy status to penicillin; E66.01 Morbid (severe) obesity due to excess calories; Z68.43 Body mass index [BMI] 50.0-59.9, adult; Z11.52 Encounter for screening for COVID-19; Z79.899 Other long term (current) drug therapy; Z79.82 Long term (current) use of aspirin
CPT/HCPCS: 36415; 71045; 80048; 80053; 83735; 83880; 84443; 84484; 85025; 87637; 93005; 96365; 96372; 96375; 99285; G0378; J1650; J3490

== ENCOUNTER 2024-04-01 13:15 | Emergency (ER) | payer BC, SELFPAY ==
[2024-04-01 13:22] VITALS: BP 146/110; PULSE 90; RESP 18; TEMP 36.6; O2SAT 96; BMI 57.4
--- NOTE | 2024-04-01 13:24 | ECG_ITS ---
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 Measurements Intervals [place] Rate: 87 P: 59 [place]: 175 QRS: 142 QRSD: 108 T: 33 QT: 407 QTc: 490 Interpretive Statements SINUS RHYTHM POSSIBLE RIGHT ATRIAL ENLARGEMENT [0.25mV P-WAVE] POSSIBLE LEFT ATRIAL ENLARGEMENT [-0.1mV P-WAVE IN V1/V2] PATTERN CONSISTENT WITH PULMONARY DISEASE POSSIBLE RIGHT VENTRICULAR HYPERTROPHY [SOME/ALL OF: PROMINENT R IN V1, LATE TRANSITION, RAD, KODI, SSS] Compared to ECG 03/28/2024 17:05:52 Intraventricular conduction delay no longer present Prolonged QT interval no longer present Electronically Signed On 04-01-2024 21:49:22 TECHNICAL SERVICES ANALYST by Angelito Gates M.D. [email or web address]
--- NOTE | 2024-04-01 13:24 | XR_ITS ---
WS: [id number] Portable AP upright chest, 04/01/2024 Clinical Data: cp Comparison: Portable chest, 03/28/2024 Findings: No nodules, masses or effusions are seen. The heart is normal. The pulmonary vascularity is not increased. No pneumonia or pneumothorax is seen. XR/XR chest 1V portable [id number] Impression: Negative chest.
[2024-04-01 14:03] LABS: Basophils # 0.1 10^3/uL (0.0-0.1); Basophils % 0.4 %; Eosinophils # 0.3 10^3/uL (0.0-0.8); Eosinophils % 2.3 %; Hematocrit 45.5 % (37-53); Lymphocytes # 2.2 10^3/uL (0.8-4.8); Lymphocytes % 19.4 %; Mean Corpuscular HGB Conc 33.6 g/dL (30-55); Mean Corpuscular Hemoglobin 26.5 pg (27-33); Mean Corpuscular Volume 78.7 fl (82-101); Mean Platelet Volume 9.3 fL (7.4-10.4); Monocytes # 0.9 10^3/uL (0.2-0.9); Monocytes % 7.8 %; Neutrophils # 7.98 10^3/uL (1.8-7.7); Neutrophils % 69.6 %; Nucleated Red Blood Cells % 0 %; Platelet Count 287 10^3/cmm (157-399); Red Blood Count 5.78 10^6/uL (3.85-5.65); White Blood Count 11.47 10^3/uL (3.29-11.43)
[2024-04-01 14:22] LABS: Alanine Aminotransferase 43 U/L (0-41); Albumin Level 3.8 g/dL (3.5-5.2); Alkaline Phosphatase 101 U/L (40-130); Aspartate Amino Transferase 27 U/L (0-40); Blood Urea Nitrogen 13 mg/dL (6-20); Calcium 8.9 mg/dL (8.5-10.5); Carbon Dioxide 22 mmol/L (22-29); Chloride 103 mmol/L (98-107); Creatinine Clr Calc Pharmacy 198.1925; Globulin 3.3 g/dL (1.3-4.6); Glomerular Filtration Rate 95.5 mL/min (90-130); Glucose 107 mg/dL (65-115); Osmolality Calculated 287 mOsm/kg (285-295); Sodium 138 mmol/L (136-145); Total Bilirubin 0.2 mg/dL (0.15-1.2); Total Protein 7.1 g/dL (6.6-8.7)
[2024-04-01 14:37] LABS: INR 0.95 (0.8-1.2)
[2024-04-01 15:49] VITALS: BP 148/89; PULSE 86; O2SAT 97
--- NOTE | 2024-04-01 15:51 | ECG_ITS ---
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 Measurements Intervals [place] Rate: 80 P: 56 [place]: 185 QRS: 135 QRSD: 109 T: 33 QT: 427 QTc: 493 Interpretive Statements SINUS RHYTHM POSSIBLE LEFT ATRIAL ENLARGEMENT [-0.1mV P-WAVE IN V1/V2] POSSIBLE RIGHT VENTRICULAR HYPERTROPHY [SOME/ALL OF: PROMINENT R IN V1, LATE TRANSITION, RAD, KODI, SSS] PROLONGED QT INTERVAL Compared to ECG 04/01/2024 13:23:20 Prolonged QT interval now present Electronically Signed On 04-01-2024 21:48:47 WAX SPECIALIST by Angelito Gates M.D. [email or web address]
--- NOTE | 2024-04-01 15:55 | W.ED.ARRPALP ---
HPI - Arrhythmia/Palpitations General: Chief Complaint: Arrhythmia/Palpitations Stated Complaint: Dr Sood sent to ER has monitor Time Seen by Provider: 04/01/24 15:47 Source: patient Mode of arrival: ambulatory Limitations: no limitations History of Present Illness: 38-year-old male history of A-fib currently on Cardizem for his A-fib he wears a heart monitor is recently discharged states that the cardiac office called him because he was in A-fib earlier today he was having palpitations he has since converted his heart rates been normal here denies any pain denies any fever. Associated symptoms: Deny nausea or vomiting Related Data Home Medications ?Medication ?Instructions ?Recorded ?Confirmed sertraline 50 mg tablet 50 mg PO DAILY 02/21/24 03/28/24 Previous Rx's ?Medication ?Instructions ?Recorded aspirin 325 mg tablet,delayed 325 mg PO DAILY #30 tabs 02/22/24 release famotidine 20 mg tablet 20 mg PO DAILY #30 tabs 02/22/24 atorvastatin 40 mg tablet 40 mg PO DAILY #30 tabs 03/29/24 diltiazem HCl 240 mg 240 mg PO DAILY 30 days #30 caps 03/29/24 capsule,extended release 24 hr diltiazem HCl 360 mg 360 mg PO DAILY #30 caps 04/01/24 capsule,extended release 24 hr (Cardizem CD) Allergies Allergy/AdvReac Type Severity Reaction Status Date / Time Penicillins Allergy ALGY-Anaphy Verified 04/01/24 13:31 laxis Review of Systems Const: Denies: fever(s), chills, body aches or change in appetite ENMT: Denies: throat pain or dental pain Card: Reports: palpitations; Denies: chest pain Resp: Denies: dyspnea GI: Denies: abdominal pain, nausea, vomiting or diarrhea Musc: Denies: neck pain or back pain Skin/Breast: Denies: rash Neuro: Denies: headache(s) PFSH ED PFSH: Medical History Family history of premature CAD Obstructive sleep apnea Depression HTN (hypertension) Morbid obesity Surgical History No pertinent past surgical history Family History Grandfather Diabetes paternal Lung cancer maternal Father CAD (coronary artery disease) [place] at the age of 25 Social History Smoking and tobacco/nicotine status: never used tobacco/nicotine Alcohol intake: never Substance/Drug Use: never Adopted: No Caregiver/support person: No Lives independently: No Household members: spouse Marital status: service: No Current occupational status: employed 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 Sexually active: Yes Do you think of yourself as: Straight/Heterosexual Current gender identity: Male Physical Exam Const: COMMON NORMALS: patient oriented x3 HENMT: COMMON NORMALS: normocephalic and atraumatic HEAD & SCALP: normocephalic and atraumatic Neck/C-Spine: COMMON NORMALS: full ROM and supple Chest: COMMONS NORMALS: normal inspection of the chest Resp: COMMON NORMALS: normal respiratory effort, No retractions, No use of accessory muscles and clear to auscultation bilaterally AUSCULTATION: clear to auscultation bilaterally Cardio: COMMON NORMALS: regular rate, regular rhythm and No murmurs present (Cardio) RATE: regular rate RHYTHM: regular rhythm GI: COMMON NORMALS: Normal to inspection, nondistended, normoactive bowel sounds present, Soft to palpation, non-tender and no masses PALPATION: Yes Soft to palpation Extremity: COMMON NORMALS: normal to inspection and full ROM Neuro: COMMON NORMALS: patient oriented x3, moves all extremities and no focal motor deficits Psych: COMMON NORMALS: mental status grossly normal, Normal thought process present and cooperative THOUGHT PROCESS: Normal thought process present Skin: COMMON NORMALS: no rashes or lesions noted and no wounds GENERAL SKIN EXAM: no rashes or lesions noted Course Vital Signs: Vital signs: Vital Signs Temperature 97.9 F 04/01/24 13:22 Pulse Rate 86 04/01/24 15:49 Respiratory Rate 18 04/01/24 13:22 Blood Pressure 148/89 04/01/24 15:49 Pulse Oximetry 97 04/01/24 15:49 Oxygen Delivery Me thod Room Air 04/01/24 15:49 MDM - Arrhythmia/Palpitations Medical Decision Making Patient presents here with A-fib he had had A-fib earlier today with his heart monitor he has since converted I spoke to his manufacturing process technician Dr. Gates who wants me to increase his dose of Cardizem to 360 and have him follow back up in the clinic informed patient of this he stable for discharge. Medical Records I reviewed the patient's medical records. Lab Data I reviewed the patient's lab results. 04/01/24 13:48 04/01/24 13:48 Radiology Impressions Chest X-Ray 04/01/24 13:24 Impression: Negative chest. Laboratory Results WBC 11.47 10^3/uL (3.29-11.43) H 04/01/24 13:48 RBC 5.78 10^6/uL (3.85-5.65) H 04/01/24 13:48 Hgb 15.30 g/dL (11.27-16.99) 04/01/24 13:48 Hct 45.5 % (37-53) 04/01/24 13:48 MCV 78.7 fl (82-101) L 04/01/24 13:48 MCH 26.5 pg (27-33) L 04/01/24 13:48 MCHC 33.6 g/dL (30-55) 04/01/24 13:48 RDW 14.0 % (12.1-15.1) 04/01/24 13:48 Plt Count 287 10^3/cmm (157-399) 04/01/24 13:48 MPV 9.3 fL (7.4-10.4) 04/01/24 13:48 Neut % (Auto) 69.6 % 04/01/24 13:48 Lymph % (Auto) 19.4 % 04/01/24 13:48 [place] % (Auto) 7.8 % 04/01/24 13:48 Eos % (Auto) 2.3 % 04/01/24 13:48 Baso % (Auto) 0.4 % 04/01/24 13:48 Neut # (Auto) 7.98 10^3/uL (1.8-7.7) H 04/01/24 13:48 Lymph # (Auto) 2.2 10^3/uL (0.8-4.8) 04/01/24 13:48 [place] # (Auto) 0.9 10^3/uL (0.2-0.9) 04/01/24 13:48 Eos # (Auto) 0.3 10^3/uL (0.0-0.8) 04/01/24 13:48 Baso # (Auto) 0.1 10^3/uL (0.0-0.1) 04/01/24 13:48 Nucleated RBC % (auto) 0 % 04/01/24 13:48 Nucleated RBCs # 0.0 /100WBC 04/01/24 13:48 PT 13.40 SECONDS (12.1-14.9) 04/01/24 13:48 INR 0.95 (0.8-1.2) 04/01/24 13:48 Sodium 138 mmol/L (136-145) 04/01/24 13:48 Potassium 4.0 mmol/L (3.5-5.1) 04/01/24 13:48 Chloride 103 mmol/L (98-107) 04/01/24 13:48 Carbon Dioxide 22 mmol/L (22-29) 04/01/24 13:48 Anion Gap 17.0 (5-19) 04/01/24 13:48 BUN 13 mg/dL (6-20) 04/01/24 13:48 Creatinine 0.9 mg/dL (0.7-1.2) 04/01/24 13:48 GFR Calculation 95.5 mL/min (90-130) 04/01/24 13:48 Glucose 107 mg/dL (65-115) 04/01/24 13:48 Calculated Osmolality 287 mOsm/kg (285-295) 04/01/24 13:48 Calcium 8.9 mg/dL (8.5-10.5) 04/01/24 13:48 Total Bilirubin 0.2 mg/dL (0.15-1.2) 04/01/24 13:48 AST 27 U/L (0-40) 04/01/24 13:48 ALT 43 U/L (0-41) H 04/01/24 13:48 Alkaline Phosphatase 101 U/L (40-130) 04/01/24 13:48 Total Protein 7.1 g/dL (6.6-8.7) 04/01/24 13:48 Albumin 3.8 g/dL (3.5-5.2) 04/01/24 13:48 Globulin 3.3 g/dL (1.3-4.6) 04/01/24 13:48 All radiology interpretation(s) finalized by discharge EKG Data EKG 1: I personally reviewed and interpreted this EKG as follows: EKG interpretation date: 04/01/24 EKG interpretation time: 15:53 Interpretation: nsr hr [address] or t wave abnormalities qrs 109qtc 462 Other EKG comments: Chest X-Ray 04/01/24 13:24 Impression: Negative chest. Discharge Plan Discharge Patient Disposition: Home Clinical Impression: Atrial fibrillation Condition: Stable Prescriptions: New diltiazem HCl [Cardizem CD] 360 mg capsule,extended release 24hr 360 mg PO DAILY Qty: 30 0RF No Action sertraline 50 mg Tablet 50 mg PO DAILY aspirin 325 mg Tablet,Delayed Release (Dr/Ec) 325 mg PO DAILY Qty: 30 0RF famotidine 20 mg tablet 20 mg PO DAILY Qty: 30 0RF diltiazem HCl 240 mg Capsule,Extended Release 24hr 240 mg PO DAILY 30 Days Qty: 30 0RF atorvastatin 40 mg tablet 40 mg PO DAILY Qty: 30 0RF Discharge Orders: Discharge ED (Routine); Ordered 04/01/24 Ordered By: Abbie Keita Referrals: Angelito Gates M.D [Physician] - 4-7 days Isabel Gómez NP [Primary Care Provider] - Krishna Jones FNP [Family Provider] - Discharge Diet: Advance as tolerated Discharge Activity: Resume usual activity Patient Instructions: A-fib (Atrial Fibrillation) (ED) Print Language: Taiwanese Coding Level of Care Code ED Lever Operator for Ch[facility]
[2024-04-01 16:06] VITALS: BP 150/88; PULSE 82; O2SAT 97
== END 2024-04-01 16:08 | disposition home or self-care (01) ==
PROVIDERS: Emergency Provider Emergency Medicine; Family Provider Nurse Practitioner Family; PCP Nurse Practitioner Family
DX: I48.91 Unspecified atrial fibrillation (principal); Z79.82 Long term (current) use of aspirin; I10 Essential (primary) hypertension
CPT/HCPCS: 36415; 71045; 80053; 85025; 85610; 93005; 99285